=== PATIENT | female | born 1935 | race Caucasian/White ===

== ENCOUNTER 2016-10-08 19:02 | Inpatient (IN) | payer MEDICARE ==
[2016-10-08] MEDS ORDERED: Sodium Chloride 0.9% 1,000 ML IV SCH ×2 (19:15→20:45)
--- NOTE | 2016-10-08 21:49 | EDM.PDOC ---
ED HPI GENERAL MEDICAL PROBLEM - General Chief Complaint: Neuro Symptoms/Deficits Stated Complaint: UNRESPONSIVE Time Seen by Provider: 10/08/16 19:08 Source of Information: Reports: Patient, Family History Limitations: Reports: No Limitations - History of Present Illness INITIAL COMMENTS - FREE TEXT/NARRATIVE: pt arrived with a history of a poor oral intake and no stool for 1 week. She is definitely quite obtunded and not her self. Onset: Gradual Duration: Day(s):, Other (pt is not reponding in the normal manner) Associated Symptoms: Reports: Loss of Appetite, Malaise, Other ( has not been able to get her meds in. She is not tasking fluids. ) - Related Data Allergies Allergy/AdvReac Type Severity Reaction Status Date / Time No Known Allergies Allergy Verified 10/08/16 19:33 Home Meds: Home Meds Aspirin [Halfprin] 162 mg PO DAILY 10/08/16 [History] Cholecalciferol (Vitamin D3) [Vitamin D3] 2,000 unit PO DAILY 10/08/16 [History] Docusate Sodium 100 mg PO DAILY 10/08/16 [History] Famotidine [Pepcid] 20 mg PO BID 10/08/16 [History] Fluticasone Propionate [Flovent] 50 mcg IN BID 10/08/16 [History] Folic Acid/Vit B Complex and C [Eql Super B Complex Tablet] 400 mcg PO DAILY [History] Insulin Aspart [Novolog Flexpen] 8 units SQ TID PRN 10/08/16 [History] Levothyroxine 75 mcg PO ACBREAKFAST 10/08/16 [History] Lisinopril [Zestril] 10 mg PO DAILY 10/08/16 [History] Loratadine [Claritin] 10 mg PO DAILY 10/08/16 [History] Metoprolol Tartrate [Lopressor] 25 mg PO DAILY 10/08/16 [History] Polyethylene Glycol 3350 [MiraLAX] 17 gm PO DAILY 10/08/16 [History] Simvastatin [Zocor] 40 mg PO DAILY 10/08/16 [History] Venlafaxine [Effexor] 75 mg PO DAILY 10/08/16 [History] glipiZIDE [Glipizide ER] 5 mg PO DAILY 10/08/16 [History] metFORMIN [Glucophage] 1,000 mg PO BIDMEALS 10/08/16 [History] Past Medical History HEENT History: Reports: Allergic Rhinitis, Impaired Vision, Other (See Below) Other HEENT History: problems swallowing Cardiovascular History: Reports: High Cholesterol, Hypertension, Stents Gastrointestinal History: Reports: GERD Genitourinary History: Reports: Urinary Incontinence [employer] History: Reports: Musculoskeletal History: Reports: Back Pain, Chronic Neurological History: Reports: CVA, TIA Psychiatric History: Reports: Dementia Endocrine/Metabolic History: Reports: Diabetes, Type II Hematologic History: Reports: Blood Transfusion(s) Oncologic (Cancer) History: Reports: Other (See Below) Other Oncologic History: many years ago - cant recall which kind - Past Surgical History Cardiovascular Surgical History: Reports: Coronary Artery Bypass, Coronary Artery Stent Female Surgical History: Reports: Hysterectomy Social & Family History - Tobacco Use Smoking Status *Q: Never Smoker - Caffeine Use Caffeine Use: Reports: None - Recreational Drug Use Recreational Drug Use: No ED ROS GENERAL - Review of Systems Review Of Systems: See Below Constitutional: Reports: Malaise, Weakness HEENT: Reports: No Symptoms Respiratory: Reports: No Symptoms Cardiovascular: Reports: No Symptoms Endocrine: Reports: No Symptoms GI/Abdominal: Reports: Decreased Appetite, Other (poor oral intake. ) : Reports: No Symptoms, Other ( She had a recent infection and just finished a course of antibiotics. She has a history of frequent infections. The infection does affect her mentally. ) Musculoskeletal: Reports: No Symptoms Neurological: Reports: Other (pt responds but she is obtunded. v) Hematologic/Lymphatic: Reports: No Symptoms ED EXAM, NEURO - Physical Exam Exam: See Below Text/Narrative:: pt arrived obtunded and with a very poor oral intake. Exam Limited By: No Limitations General Appearance: Alert, Obtunded, Other (pupils equal and reactive) Ears: Normal TMs Nose: Normal Inspection Throat/Mouth: Normal Inspection Head Exam: Atraumatic Neck: Normal Inspection Respiratory/Chest: No Respiratory Distress Cardiovascular: Regular Rate, Rhythm, Tachycardia GI/Abdominal: Soft, Non-Tender (Female) Exam: Deferred Rectal (Female) Exam: Deferred Neurological: Alert, Other (obtunded septic looking) Back Exam: Normal Inspection Extremities: Normal Inspection Psychiatric: Flat Affect Course - Vital Signs Last Recorded V/S: Last Vital Signs Temp 36.6 C 10/08/16 19:48 Pulse 75 06/15/17 21:16 Resp 18 10/08/16 21:16 BP 177/94 H 10/08/16 21:16 Pulse Ox 98 10/08/16 21:16 - Orders/Labs/Meds Orders: Active Orders 24 hr Category Date Time Status Head wo Cont [CT] Stat Exams 10/08/16 20:21 Taken Sodium Chloride 0.9% [Normal Saline] 1,000 ml Med 10/08/16 19:15 Active IV ASDIRECTED Sodium Chloride 0.9% [Normal Saline] 1,000 ml Med 10/08/16 20:45 Active IV ASDIRECTED Medication Orders Sodium Chloride (Normal Saline) 1,000 mls @ 999 mls/hr IV ASDIRECTED FRANCIE Last Admin: 10/08/16 19:25 Dose: 999 mls/hr Sodium Chloride (Normal Saline) 1,000 mls @ 250 mls/hr IV ASDIRECTED FRANCIE Last Admin: 10/08/16 20:35 Dose: 250 mls/hr Labs: Laboratory Tests 10/08/16 10/08/16 10/08/16 Range/Units 19:10 19:10 19:10 WBC 9.0 (4.5-11.0) K/uL RBC 3.99 (3.30-5.50) M/uL Hgb 11.8 L (12.0-15.0) g/dL Hct 36.8 (36.0-48.0) % MCV 92 (80-98) fL MCH 30 (27-31) pg MCHC 32 (32-36) % Plt Count 219 (150-400) K/uL Neut % (Auto) 67 H (36-66) % Lymph % (Auto) 22 L (24-44) % [place] % (Auto) 9 H (2-6) % Eos % (Auto) 2 (2-4) % Baso % (Auto) 0 (0-1) % Sodium 141 (140-148) mmol/L Potassium 5.5 H (3.6-5.2) mmol/L Chloride 106 (100-108) mmol/L Carbon Dioxide 21 (21-32) mmol/L Anion Gap 19.5 H (5.0-14.0) mmol/L BUN 31 H (7-18) mg/dL Creatinine 2.3 H (0.6-1.0) mg/dL Est Cr Clr Drug Dosing 15.69 mL/min Estimated GFR (MDRD) 20 L (>60) Glucose 139 H (74-106) mg/dL Lactic Acid 4.0 H (0.4-2.0) mmol/L Calcium 9.0 (8.5-10.1) mg/dL Total Bilirubin 0.2 (0.2-1.0) mg/dL AST 17 (15-37) U/L ALT 20 (12-78) U/L Alkaline Phosphatase 91 (46-116) U/L Total Protein 7.4 (6.4-8.2) g/dL Albumin 3.6 (3.4-5.0) g/dL Globulin 3.8 H (2.3-3.5) g/dL Albumin/Globulin Ratio 1.0 L (1.2-2.2) Urine Color Urine Appearance Urine pH (4.5-8.0) Ur Specific [place] (1.008-1.030) Urine Protein (NEGATIVE) mg/dL Urine Glucose (UA) (NEGATIVE) mg/dL Urine Ketones (NEGATIVE) mg/dL Urine Occult Blood (NEGATIVE) Urine Nitrite (NEGATIVE) Urine Bilirubin (NEGATIVE) Urine Urobilinogen (NORMAL) mg/dL Ur Leukocyte Esterase (NEGATIVE) Urine RBC (0-5) Urine WBC (0-5) Ur Epithelial Cells Amorphous Sediment Urine Bacteria Urine Mucus 10/08/16 Range/Units 19:25 WBC (4.5-11.0) K/uL RBC (3.30-5.50) M/uL Hgb (12.0-15.0) g/dL Hct (36.0-48.0) % MCV (80-98) fL MCH (27-31) pg MCHC (32-36) % Plt Count (150-400) K/uL Neut % (Auto) (36-66) % Lymph % (Auto) (24-44) % [place] % (Auto) (2-6) % Eos % (Auto) (2-4) % Baso % (Auto) (0-1) % Sodium (140-148) mmol/L Potassium (3.6-5.2) mmol/L Chloride (100-108) mmol/L Carbon Dioxide (21-32) mmol/L Anion Gap (5.0-14.0) mmol/L BUN (7-18) mg/dL Creatinine (0.6-1.0) mg/dL Est Cr Clr Drug Dosing mL/min Estimated GFR (MDRD) (>60) Glucose (74-106) mg/dL Lactic Acid (0.4-2.0) mmol/L Calcium (8.5-10.1) mg/dL Total Bilirubin (0.2-1.0) mg/dL AST (15-37) U/L ALT (12-78) U/L Alkaline Phosphatase (46-116) U/L Total Protein (6.4-8.2) g/dL Albumin (3.4-5.0) g/dL Globulin (2.3-3.5) g/dL Albumin/Globulin Ratio (1.2-2.2) Urine Color Yellow Urine Appearance Clear Urine pH 6.0 (4.5-8.0) Ur Specific [place] 1.015 (1.008-1.030) Urine Protein Negative (NEGATIVE) mg/dL Urine Glucose (UA) Normal (NEGATIVE) mg/dL Urine Ketones Negative (NEGATIVE) mg/dL Urine Occult Blood Negative (NEGATIVE) Urine Nitrite Negative (NEGATIVE) Urine Bilirubin Small (NEGATIVE) Urine Urobilinogen Normal (NORMAL) mg/dL Ur Leukocyte Esterase Negative (NEGATIVE) Urine RBC 0-5 (0-5) Urine WBC 5-10 H (0-5) Ur Epithelial Cells Moderate Amorphous Sediment Not seen Urine Bacteria Moderate Urine Mucus Few Meds: Medications Generic Name Dose Route Start Last Admin Trade Name Freq PRN Reason Stop Dose Admin Sodium Chloride 1,000 mls @ 999 mls/hr 10/08/16 19:15 10/08/16 19:25 Normal Saline IV 999 mls/hr ASDIRECTED FRANCIE Administration Sodium Chloride 1,000 mls @ 250 mls/hr 10/08/16 20:45 10/08/16 20:35 Normal Saline IV 250 mls/hr ASDIRECTED FRANCIE Administration - Re-Assessments/Exams Free Text/Narrative Re-Assessment/Exam: 10/08/16 21:51 cat scan of the head showed no acute findings. Departure - Departure Time of Disposition: 21:52 Disposition: Admitted As Inpatient 68 Condition: Fair Clinical Impression: Sepsis, UTI (urinary tract infection), Dehydration, Renal insufficiency - Discharge Information Forms: ED Department Discharge Care Plan Goals: admit to [facility]. - My Orders Last 24 Hours: My Active Orders 10/08/16 19:15 Sodium Chloride 0.9% [Normal Saline] 1,000 ml IV ASDIRECTED 10/08/16 20:21 Head wo Cont [CT] Stat 10/08/16 20:45 Sodium Chloride 0.9% [Normal Saline] 1,000 ml IV ASDIRECTED - Assessment/Plan Last 24 Hours: My Active Orders 10/08/16 19:15 Sodium Chloride 0.9% [Normal Saline] 1,000 ml IV ASDIRECTED 10/08/16 20:21 Head wo Cont [CT] Stat 10/08/16 20:45 Sodium Chloride 0.9% [Normal Saline] 1,000 ml IV ASDIRECTED
[2016-10-09] MEDS ORDERED: Enoxaparin 30 MG/0.3 ML Syringe SUBCUT SCH
[2016-10-09] MEDS ORDERED: Acetaminophen 325 MG Tab PO PRN (00:54)
[2016-10-09] MEDS ORDERED: Bisacodyl 10 MG Supp RECTAL ONE ×2 (00:54→08:45)
[2016-10-09] MEDS ORDERED: Glucose Gel 15 GM in 37.5 GM Tube PO PRN (00:54)
[2016-10-09] MEDS ORDERED: Magnesium Hydroxide 400 MG/5 ML Susp 30 ML Cup PO PRN (00:54)
[2016-10-09] MEDS ORDERED: Albuterol 0.083% 2.5 MG/3 ML Neb Soln NEB PRN (00:54)
[2016-10-09] MEDS ORDERED: Ondansetron 4 MG/2 ML SDV IV PRN (00:54)
[2016-10-09] MEDS ORDERED: 50% Dextrose in Water 50 ML Syringe IV PRN (00:54)
[2016-10-09] MEDS ORDERED: Sodium Chloride 0.9% 500 ML IV ONE (00:54)
[2016-10-09] MEDS ORDERED: Polyethylene Glycol 3350 Powder 17 GM Packet PO PRN (00:54)
[2016-10-09] MEDS ORDERED: Sodium Polystyrene Sulfonate 15 GM/60 ML Susp 60 ML Bot RECTAL ONE (00:54)
[2016-10-09] MEDS ORDERED: Sodium Chloride 0.9% 10 ML Syringe FLUSH PRN (00:54)
[2016-10-09] MEDS ORDERED: oxyCODONE 5 MG Tab PO PRN (00:54)
[2016-10-09] MEDS ORDERED: Docusate Sodium 100 MG Cap PO PRN (00:54)
--- NOTE | 2016-10-09 01:16 | PCM.HP ---
H&P History of Present Illness - General Date of Service: 10/09/16 Admit Problem/Dx: Admission Diagnosis/Problem Admission Diagnosis/Problem CVA, Cerebrovascular accident Source of Information: Family, Old Records, Provider, RN Notes Reviewed History Limitations: Reports: Other (Decreased level of consciousness, expressive aphasia) - History of Present Illness Initial Comments - Free Text/Narative: This patient is a 81-year-old woman who is admitted through the emergency department with a recent history of decreased level of consciousness, weakness, and poor oral intake. 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 reports that over the past 3-4 days she has been less active spending all of her time in bed refusing foods as well as medications and becoming progressively more weak with decreased level of consciousness. Evaluation in the emergency department shows CT scan of the head with no acute changes. There is a lactic acidosis but no evidence of underlying infection or sepsis. Likely that the lactic acidosis is secondary to dehydration and poor peripheral perfusion. Chest x-ray shows no obvious infiltrates, urinalysis shows 5-10 WBCs with moderate bacteria, normal leukocyte esterase and nitrites. When seen for admission she is more alert and somewhat interactive but very limited because of her speech difficulty. - Related Data Allergies/Adverse Reactions: Allergies Allergy/AdvReac Type Severity Reaction Status Date / Time No Known Allergies Allergy Verified 10/08/16 19:33 Home Medications: Home Meds Aspirin [Halfprin] 162 mg PO DAILY 10/08/16 [History] Cholecalciferol (Vitamin D3) [Vitamin D3] 2,000 unit PO DAILY 10/08/16 [History] Docusate Sodium 100 mg PO DAILY 10/08/16 [History] Famotidine [Pepcid] 20 mg PO BID 10/08/16 [History] Fluticasone Propionate [Flovent] 50 mcg IN BID 10/08/16 [History] Folic Acid/Vit B Complex and C [Eql Super B Complex Tablet] 400 mcg PO DAILY [History] Insulin Aspart [Novolog Flexpen] 8 units SQ TID PRN 10/08/16 [History] Levothyroxine 75 mcg PO ACBREAKFAST 10/08/16 [History] Lisinopril [Zestril] 10 mg PO DAILY 10/08/16 [History] Loratadine [Claritin] 10 mg PO DAILY 10/08/16 [History] Metoprolol Tartrate [Lopressor] 25 mg PO DAILY 10/08/16 [History] Polyethylene Glycol 3350 [MiraLAX] 17 gm PO DAILY 10/08/16 [History] Simvastatin [Zocor] 40 mg PO DAILY 10/08/16 [History] Venlafaxine [Effexor] 75 mg PO DAILY 10/08/16 [History] glipiZIDE [Glipizide ER] 5 mg PO DAILY 10/08/16 [History] metFORMIN [Glucophage] 1,000 mg PO BIDMEALS 10/08/16 [History] Past Medical History HEENT History: Reports: Allergic Rhinitis, Impaired Vision, Other (See Below) Other HEENT History: problems swallowing Cardiovascular History: Reports: High Cholesterol, Hypertension, Stents Gastrointestinal History: Reports: GERD Genitourinary History: Reports: Urinary Incontinence [employer] History: Reports: Musculoskeletal History: Reports: Back Pain, Chronic Neurological History: Reports: CVA, TIA Psychiatric History: Reports: Dementia Endocrine/Metabolic History: Reports: Diabetes, Type II Hematologic History: Reports: Blood Transfusion(s) Oncologic (Cancer) History: Reports: Other (See Below) Other Oncologic History: many years ago - cant recall which kind - Past Surgical History Cardiovascular Surgical History: Reports: Coronary Artery Bypass, Coronary Artery Stent Female Surgical History: Reports: Hysterectomy Social & Family History - Tobacco Use Smoking Status *Q: Never Smoker - Caffeine Use Caffeine Use: Reports: None - Recreational Drug Use Recreational Drug Use: No H&P Review of Systems - Review of Systems: Review Of Systems: Unable To Obtain General: Reports: ROS unobtainable (Secondary to lethargy and impaired speech) Exam - Exam Exam: See Below - Vital Signs Vital Signs: Last Vital Signs Temp 97.8 F 10/08/16 19:48 Pulse 71 10/09/16 00:10 Resp 18 10/09/16 00:10 BP 166/78 H 10/09/16 00:10 Pulse Ox 97 10/09/16 00:10 Weight: 150 lb - Exam Quality Assessment: DVT Prophylaxis General: Alert, Cooperative, Mild Distress HEENT: Conjunctiva Clear, Hearing Intact, Nares Patent, Normal Nasal Septum, Posterior Pharynx Clear, Pupils Equal. No: Mucosa Moist & [place] Neck: Supple, Trachea Midline, +2 Carotid Pulse wo Bruit Lungs: Clear to Auscultation, Normal Respiratory Effort Cardiovascular: Regular Rate, Regular Rhythm, Normal S1, Normal S2. No: Irregular Rhythm, Bradycardia, Tachycardia, Systolic Murmur, Diastolic Murmur Abdomen: Normal Bowel Sounds, Soft. No: Organomegaly, Peritoneal Signs, Distention, Guarding, Rigidity, Rebound, Tenderness Back Exam: Normal Inspection, Full Range of Motion, NT Extremities: 3, Normal Inspection, 10 Neurological: Strength Equal Bilateral, Normal Tone, Sensation Intact, Focal Deficit. No: Cranial Nerves Intact, Normal Speech Neuro Extensive - Mental Status: Alert, Inattentive - Patient Data Result Diagrams: 10/08/16 19:10 10/08/16 19:10 *Q Meaningful Use (ADM) - VTE *Q VTE Criteria *Q: - VTE Risk Assess *Q Each Risk Factor Represents 1 Point: None Total Score 1 Point Risk Factors: 0 Each Risk Factor Represents 2 Points: None Total Score 2 Point Risk Factors: 0 Each Risk Factor Represents 3 Points: Age 75 Years or Greater Total Score 3 Point Risk Factors: 3 Each Risk Factor Represents 5 Points: None Total Score 5 Point Risk Factors: 0 Venous Thromboembolism Risk Factor Score *Q: 3 - Stroke *Q Stroke Criteria *Q: - AMI *Q AMI Criteria *Q: Problem List Initiated/Reviewed/Updated: Yes Orders Last 24hrs: Active Orders 24 hr Category Date Time Status Patient Status [ADT] Routine ADT 10/09/16 00:54 Active Blood Glucose Check, Bedside [RC] QIDACANDBED Care 10/09/16 00:54 Active Communication Order [RC] ASDIRECTED Care 10/09/16 00:54 Active Diabetes Education [RC] Click to Edit Care 10/09/16 00:54 Active Intake and Output [RC] QSHIFT Care 10/09/16 00:54 Active Neuro Check [RC] Q4HR Care 10/09/16 00:54 Active Notify Provider [RC] PRN Care 10/09/16 00:54 Active Oxygen Therapy [RC] PRN Care 10/09/16 00:54 Active Peripheral IV Care [RC] . DIRECTED Care 10/09/16 00:54 Active RT Aerosol Therapy [RC] ASDIRECTED Care 10/09/16 00:54 Active Up With Assistance [RC] ASDIRECTED Care 10/09/16 00:54 Active Up to Chair [RC] QID Care 10/09/16 00:54 Active VTE/DVT Education [RC] Per Unit Routine Care 10/09/16 00:54 Active Vital Signs [RC] Q4H Care 10/09/16 00:54 Active PT Evaluation and Treatment [CONS] Routine Cons 10/09/16 00:54 Active Consistent Carbohydrate Diet [DIET] Diet 10/09/16 Dinner Active Brain w wo Cont [MR] Urgent Exams 10/09/16 08:00 Ordered BASIC METABOLIC PANEL,BMP [CHEM] AM Lab 10/09/16 05:11 Ordered C-REACTIVE PROTEIN [CHEM] AM Lab 10/09/16 05:11 Ordered CBC WITH AUTO DIFF [HEME] AM Lab 10/09/16 05:11 Ordered GLUCOSE POC LAB TO COLLECT [POC] QIDACANDBED Lab 10/09/16 07:30 Ordered GLUCOSE POC LAB TO COLLECT [POC] QIDACANDBED Lab 10/09/16 11:30 Ordered GLUCOSE POC LAB TO COLLECT [POC] QIDACANDBED Lab 10/09/16 16:30 Ordered GLUCOSE POC LAB TO COLLECT [POC] QIDACANDBED Lab 10/09/16 21:00 Ordered GLUCOSE POC LAB TO COLLECT [POC] QIDACANDBED Lab 10/10/16 07:30 Ordered GLUCOSE POC LAB TO COLLECT [POC] QIDACANDBED Lab 10/10/16 11:30 Ordered GLUCOSE POC LAB TO COLLECT [POC] QIDACANDBED Lab 10/10/16 16:30 Ordered GLUCOSE POC LAB TO COLLECT [POC] QIDACANDBED Lab 10/10/16 21:00 Ordered GLUCOSE POC LAB TO COLLECT [POC] QIDACANDBED Lab 10/11/16 07:30 Ordered GLUCOSE POC LAB TO COLLECT [POC] QIDACANDBED Lab 10/11/16 11:30 Ordered GLUCOSE POC LAB TO COLLECT [POC] QIDACANDBED Lab 10/11/16 16:30 Ordered GLUCOSE POC LAB TO COLLECT [POC] QIDACANDBED Lab 10/11/16 21:00 Ordered GLUCOSE POC LAB TO COLLECT [POC] QIDACANDBED Lab 10/12/16 07:30 Ordered GLUCOSE POC LAB TO COLLECT [POC] QIDACANDBED Lab 10/12/16 11:30 Ordered GLUCOSE POC LAB TO COLLECT [POC] QIDACANDBED Lab 10/12/16 16:30 Ordered GLUCOSE POC LAB TO COLLECT [POC] QIDACANDBED Lab 10/12/16 21:00 Ordered GLUCOSE POC LAB TO COLLECT [POC] QIDACANDBED Lab 10/13/16 07:30 Ordered GLUCOSE POC LAB TO COLLECT [POC] QIDACANDBED Lab 10/13/16 11:30 Ordered GLUCOSE POC LAB TO COLLECT [POC] QIDACANDBED Lab 10/13/16 16:30 Ordered GLUCOSE POC LAB TO COLLECT [POC] QIDACANDBED Lab 10/13/16 21:00 Ordered GLUCOSE POC LAB TO COLLECT [POC] QIDACANDBED Lab 10/14/16 07:30 Ordered GLUCOSE POC LAB TO COLLECT [POC] QIDACANDBED Lab 10/14/16 11:30 Ordered GLUCOSE POC LAB TO COLLECT [POC] QIDACANDBED Lab 10/14/16 16:30 Ordered GLUCOSE POC LAB TO COLLECT [POC] QIDACANDBED Lab 10/14/16 21:00 Ordered GLUCOSE POC LAB TO COLLECT [POC] QIDACANDBED Lab 10/15/16 07:30 Ordered GLUCOSE POC LAB TO COLLECT [POC] QIDACANDBED Lab 10/15/16 11:30 Ordered GLUCOSE POC LAB TO COLLECT [POC] QIDACANDBED Lab 10/15/16 16:30 Ordered GLUCOSE POC LAB TO COLLECT [POC] QIDACANDBED Lab 10/15/16 21:00 Ordered GLUCOSE POC LAB TO COLLECT [POC] QIDACANDBED Lab 10/16/16 07:30 Ordered GLUCOSE POC LAB TO COLLECT [POC] QIDACANDBED Lab 10/16/16 11:30 Ordered GLUCOSE POC LAB TO COLLECT [POC] QIDACANDBED Lab 10/16/16 16:30 Ordered GLUCOSE POC LAB TO COLLECT [POC] QIDACANDBED Lab 10/16/16 21:00 Ordered GLUCOSE POC LAB TO COLLECT [POC] QIDACANDBED Lab 10/17/16 07:30 Ordered GLUCOSE POC LAB TO COLLECT [POC] QIDACANDBED Lab 10/17/16 11:30 Ordered GLUCOSE POC LAB TO COLLECT [POC] QIDACANDBED Lab 10/17/16 16:30 Ordered GLUCOSE POC LAB TO COLLECT [POC] QIDACANDBED Lab 10/17/16 21:00 Ordered GLUCOSE POC LAB TO COLLECT [POC] QIDACANDBED Lab 10/18/16 07:30 Ordered GLUCOSE POC LAB TO COLLECT [POC] QIDACANDBED Lab 10/18/16 11:30 Ordered GLUCOSE POC LAB TO COLLECT [POC] QIDACANDBED Lab 10/18/16 16:30 Ordered GLUCOSE POC LAB TO COLLECT [POC] QIDACANDBED Lab 10/18/16 21:00 Ordered GLUCOSE POC LAB TO COLLECT [POC] QIDACANDBED Lab 10/19/16 07:30 Ordered GLUCOSE POC LAB TO COLLECT [POC] QIDACANDBED Lab 10/19/16 11:30 Ordered GLUCOSE POC LAB TO COLLECT [POC] QIDACANDBED Lab 10/19/16 16:30 Ordered GLUCOSE POC LAB TO COLLECT [POC] QIDACANDBED Lab 10/19/16 21:00 Ordered TSH ULTRASENSITIVE [CHEM] Timed Lab 10/09/16 05:00 Ordered Acetaminophen [Tylenol] Med 10/09/16 00:54 Active 650 mg PO Q4H PRN Albuterol [Proventil Neb Soln] Med 10/09/16 00:54 Active 2.5 mg NEB Q4H PRN Dextrose 50% in Water Med 10/09/16 00:54 Active 50 ml IV ONETIME PRN Dextrose [Glutose 15] Med 10/09/16 00:54 Active 15 gm PO ONETIME PRN Docusate Sodium [Colace] Med 10/09/16 00:54 Active 100 mg PO BID PRN Enoxaparin [Lovenox] Med 10/09/16 00:54 Ordered 40 mg SUBCUT DAILY Insulin Aspart [NovoLOG] Med 10/09/16 00:54 Active See Protocol SUBCUT ASDIRECTED Magnesium Hydroxide [Milk of Magnesia] Med 10/09/16 00:54 Ordered 30 ml PO Q12H PRN Ondansetron [Zofran] Med 10/09/16 00:54 Ordered 4 mg IV Q4H PRN Polyethylene Glycol 3350 [MiraLAX] Med 10/09/16 00:54 Ordered 17 gm PO DAILY PRN Sodium Chloride 0.9% [Normal Saline] 1,000 ml Med 10/09/16 04:30 Ordered IV ASDIRECTED Sodium Chloride 0.9% [Normal Saline] 500 ml Med 10/09/16 00:54 Ordered IV .BOLUS Sodium Chloride 0.9% [Saline Flush] Med 10/09/16 00:54 Ordered 10 ml FLUSH ASDIRECTED PRN oxyCODONE Med 10/09/16 00:54 Ordered 5 mg PO Q4H PRN Peripheral IV Insertion Adult [OM.PC] Routine Oth 10/09/16 00:54 Ordered Resuscitation Status Routine Resus Stat 10/09/16 00:17 Ordered Medication Orders Acetaminophen (Tylenol) 650 mg PO Q4H PRN PRN Reason: Pain (Mild 1-3)/fever Albuterol (Proventil Neb Soln) 2.5 mg NEB Q4H PRN PRN Reason: Shortness Of Breath/wheezing Aspirin (Halfprin) 162 mg PO DAILY FRANCIE Dextrose (Glutose 15) 15 gm PO ONETIME PRN PRN Reason: Hypoglycemia Dextrose/Water (Dextrose 50% In Water) 50 ml IV ONETIME PRN PRN Reason: Hypoglycemia Docusate Sodium (Colace) 100 mg PO BID FRANCIE Docusate Sodium (Colace) 100 mg PO BID PRN PRN Reason: Constipation Enoxaparin Sodium (Lovenox) 40 mg SUBCUT DAILY [facility] Famotidine (Pepcid) 20 mg PO BID FRANCIE Sodium Chloride (Normal Saline) 500 mls @ 250 mls/hr IV .BOLUS FRANCIE Stop: 10/09/16 04:55 Sodium Chloride (Normal Saline) 1,000 mls @ 125 mls/hr IV ASDIRECTED FRANCIE Insulin Aspart (Novolog) 0 unit SUBCUT ASDIRECTED FRANCIE PRN Reason: Protocol Levothyroxine Sodium (Levothyroxine) 75 mcg PO ACBREAKFAST [facility]1983 Lisinopril (Prinivil) 10 mg PO DAILY [facility] Magnesium Hydroxide (Milk Of Magnesia) 30 ml PO Q12H PRN PRN Reason: Constipation Metoprolol Tartrate (Lopressor) 25 mg PO DAILY [facility]1983 Non-Formulary Medication (Fluticasone Propionate [Flovent]) 50 mcg IN BID [facility]1983 Non-Formulary Medication (Simvastatin [Zocor]) 40 mg PO DAILY [facility]1983 Ondansetron HCl (Zofran) 4 mg IV Q4H PRN PRN Reason: Nausea/Vomiting Oxycodone HCl (Oxycodone) 5 mg PO Q4H PRN PRN Reason: Pain (moderate 4-6) Polyethylene Glycol (Miralax) 17 gm PO BID FRANCIE Polyethylene Glycol (Miralax) 17 gm PO DAILY PRN PRN Reason: Constipation Sodium Chloride (Saline Flush) 10 ml FLUSH ASDIRECTED PRN PRN Reason: Keep Vein Open Venlafaxine HCl (Effexor) 75 mg PO DAILY FRANCIE Assessment/Plan Comment:: ASSESSMENT AND PLAN WEAKNESS AND DEHYDRATION-no evidence of underlying infection, metabolic abnormality, or new medication effect. I am suspicious that she has experienced a new CVA, complicating previous large CVA and history of smaller events in the past. -Neuro checks every 4 hours -IV fluids for hydration -Physical therapy consult in a.m. -MRI with and without contrast in a.m. CONSTIPATION- reports that she is not had a bowel movement for the past 5 -6 days. -Twice daily Colace -Twice daily lactulose -Dulcolax suppository HYPERKALEMIA-likely related to dehydration and renal insufficiency -Kayexalate 30 g rectally now -Recheck potassium level in a.m. -IV fluids as above CHRONIC KIDNEY DISEASE STAGE III-current GFR is 20, exacerbation likely secondary to dehydration and prerenal effect -IV fluids -Closely monitor urine output and renal function during hospital stay TYPE 2 DIABETES MELLITUS -Old scheduled insulins and oral hypoglycemic therapy until oral intake improves -4 times a day glucometers -Low-dose sliding scale NovoLog HYPOTHYROIDISM -Continue outpatient thyroid replacement medication -TSH with a.m. labs LACTIC ACIDOSIS-likely secondary to dehydration and poor peripheral perfusion -IV fluids for hydration -Repeat lactic acid level in a.m. MAINTENANCE ISSUES -DVT prophylaxis; Lovenox 30 mg subcutaneous daily -GI prophylaxis; continue outpatient H2 jonathan therapy -Pulliam catheter; not indicated -Nutrition; regular diet -Nicotine dependence; not required CODE STATUS-FULL CODE ADMISSION STATUS-patient will be admitted to inpatient status, expect at least a 2 night hospital stay for evaluation and management of problems as outlined above. At the time of this admission I do not reasonably expected evaluation and management of this problem will require more than a 96 hour hospital stay. DISPOSITION-anticipate discharge to home after the hospital stay. PRIMARY CARE PROVIDER-Dr. Zhong
[2016-10-09] MEDS ORDERED: Sodium Chloride 0.9% 1,000 ML IV SCH ×2 (04:30→08:45)
[2016-10-09] MEDS ORDERED: Sodium Phosphate,Monobasic/Sodium Phosphate,Dibasic Enema 133 ML Bottle RECTAL PRN (08:23)
[2016-10-09] MEDS: Levothyroxine 75 MCG Tab PO SCH (08:45)
--- NOTE | 2016-10-09 09:05 | CR ---
Chest 1V Frontal INDICATION: elevated lactic acid. FINDINGS: Comparison 04/18/2012. Sternotomy. Normal heart size. Old right rib fracture. No focal inf iltrate. Chest otherwise negative.
--- NOTE | 2016-10-09 09:14 | PCM.PN ---
- General Info Date of Service: 10/09/16 Functional Status: Reports: pain controlled, tolerating diet, ambulating, urinating - Review of Systems General: Reports: Weakness. Denies: Fever, Chills Pulmonary: Reports: no symptoms Cardiovascular: Reports: No Symptoms Gastrointestinal: Reports: No symptoms Systems Review Comment:: This patient appears improved today, she is more alert and interactive. Vital signs of been stable and she has remained afebrile. Metabolic abnormalities have improved with hydration. - Patient Data Vitals - most recent: Last Vital Signs Temp 97.4 F 10/09/16 07:27 Pulse 75 10/09/16 07:27 Resp 20 10/09/16 07:27 BP 113/56 L 10/09/16 07:27 Pulse Ox 96 10/09/16 07:27 Weight - most recent: 148 lb 14.4 oz I&O - last 24 hours: Intake & Output 10/08/16 10/09/16 10/09/16 22:59 06:59 14:59 Intake Total 1828 Output Total 75 Balance 1753 Lab Results last 24 hrs: Laboratory Results - last 24 hr 10/09/16 10/09/16 10/09/16 Range/Units 05:40 05:40 05:40 WBC 7.4 (4.5-11.0) K/uL RBC 3.48 (3.30-5.50) M/uL Hgb 10.3 L (12.0-15.0) g/dL Hct 32.0 L (36.0-48.0) % MCV 92 (80-98) fL MCH 30 (27-31) pg MCHC 32 (32-36) % Plt Count 164 (150-400) K/uL Neut % (Auto) 54 (36-66) % Lymph % (Auto) 33 (24-44) % Ritchie % (Auto) 11 H (2-6) % Eos % (Auto) 3 (2-4) % Baso % (Auto) 0 (0-1) % Sodium 145 (140-148) mmol/L Potassium 4.9 (3.6-5.2) mmol/L Chloride 114 H (100-108) mmol/L Carbon Dioxide 20 L (21-32) mmol/L Anion Gap 15.9 H (5.0-14.0) mmol/L BUN 25 H (7-18) mg/dL Creatinine 1.8 H (0.6-1.0) mg/dL Est Cr Clr Drug Dosing 19.87 mL/min Estimated GFR (MDRD) 27 L (>60) Glucose 52 L (74-106) mg/dL Lactic Acid (0.4-2.0) mmol/L Calcium 7.9 L (8.5-10.1) mg/dL C-Reactive Protein 0.05 (0.0-0.3) mg/dL TSH, Ultra Sensitive 0.803 (0.358-3.740) uIU/mL 10/09/16 Range/Units 05:40 WBC (4.5-11.0) K/uL RBC (3.30-5.50) M/uL Hgb (12.0-15.0) g/dL Hct (36.0-48.0) % MCV (80-98) fL MCH (27-31) pg MCHC (32-36) % Plt Count (150-400) K/uL Neut % (Auto) (36-66) % Lymph % (Auto) (24-44) % Ritchie % (Auto) (2-6) % Eos % (Auto) (2-4) % Baso % (Auto) (0-1) % Sodium (140-148) mmol/L Potassium (3.6-5.2) mmol/L Chloride (100-108) mmol/L Carbon Dioxide (21-32) mmol/L Anion Gap (5.0-14.0) mmol/L BUN (7-18) mg/dL Creatinine (0.6-1.0) mg/dL Est Cr Clr Drug Dosing mL/min Estimated GFR (MDRD) (>60) Glucose (74-106) mg/dL Lactic Acid 0.8 (0.4-2.0) mmol/L Calcium (8.5-10.1) mg/dL C-Reactive Protein (0.0-0.3) mg/dL TSH, Ultra Sensitive (0.358-3.740) uIU/mL Med Orders - Current: Current Medications Acetaminophen (Tylenol) 650 mg PO Q4H PRN PRN Reason: Pain (Mild 1-3)/fever Albuterol (Proventil Neb Soln) 2.5 mg NEB Q4H PRN PRN Reason: Shortness Of Breath/wheezing Aspirin (Halfprin) 162 mg PO DAILY ON LICENSE OF [facility] Dextrose (Glutose 15) 15 gm PO ONETIME PRN PRN Reason: Hypoglycemia Dextrose/Water (Dextrose 50% In Water) 50 ml IV ONETIME PRN PRN Reason: Hypoglycemia Docusate Sodium (Colace) 100 mg PO BID ON LICENSE OF [facility] Enoxaparin Sodium (Lovenox) 30 mg SUBCUT DAILY@0000 ON LICENSE OF [facility] Last Admin: 10/09/16 01:37 Dose: 30 mg Famotidine (Pepcid) 20 mg PO DAILY ON LICENSE OF [facility] Sodium Chloride (Normal Saline) 1,000 mls @ 50 mls/hr IV ASDIRECTED ON LICENSE OF [facility] Insulin Aspart (Novolog) 0 unit SUBCUT ASDIRECTED ON LICENSE OF [facility] PRN Reason: Protocol Levothyroxine Sodium (Levothyroxine) 75 mcg PO ACBREAKFAST ON LICENSE OF [facility] Last Admin: 10/09/16 08:45 Dose: 75 mcg Lisinopril (Prinivil) 10 mg PO DAILY ON LICENSE OF [facility] Magnesium Hydroxide (Milk Of Magnesia) 30 ml PO Q12H PRN PRN Reason: Constipation Metoprolol Tartrate (Lopressor) 25 mg PO DAILY ON LICENSE OF [facility] Mometasone Furoate (Asmanex 220 Mcg) 0 puff INH DAILY ON LICENSE OF [facility] Ondansetron HCl (Zofran) 4 mg IV Q4H PRN PRN Reason: Nausea/Vomiting Oxycodone HCl (Oxycodone) 5 mg PO Q4H PRN PRN Reason: Pain (moderate 4-6) Polyethylene Glycol (Miralax) 17 gm PO BID ON LICENSE OF [facility] Simvastatin (Zocor) 40 mg PO BEDTIME ON LICENSE OF [facility] Sodium Biphosphate/Sodium Phosphate (Fleet Enema) 133 ml RECTAL ONETIME PRN PRN Reason: Constipation Stop: 10/09/16 18:00 Sodium Chloride (Saline Flush) 10 ml FLUSH ASDIRECTED PRN PRN Reason: Keep Vein Open Venlafaxine HCl (Effexor Xr) 75 mg PO DAILY ON LICENSE OF [facility] Discontinued Medications Bisacodyl (Dulcolax) 10 mg RECTAL ONETIME ONE Stop: 10/09/16 00:55 Last Admin: 10/09/16 01:37 Dose: 10 mg Bisacodyl (Dulcolax) 10 mg RECTAL ONETIME ONE Stop: 10/09/16 08:46 Docusate Sodium (Colace) 100 mg PO BID PRN PRN Reason: Constipation Sodium Chloride (Normal Saline) 1,000 mls @ 999 mls/hr IV ASDIRECTED ON LICENSE OF [facility] Last Admin: 10/08/16 19:25 Dose: 999 mls/hr Sodium Chloride (Normal Saline) 1,000 mls @ 250 mls/hr IV ASDIRECTED ON LICENSE OF [facility] Last Admin: 10/08/16 20:35 Dose: 250 mls/hr Sodium Chloride (Normal Saline) 500 mls @ 250 mls/hr IV ONETIME ONE Stop: 10/09/16 02:53 Last Admin: 10/09/16 01:30 Dose: 250 mls/hr Sodium Chloride (Normal Saline) 1,000 mls @ 125 mls/hr IV ASDIRECTED ON LICENSE OF [facility] Last Admin: 10/09/16 03:44 Dose: 125 mls/hr Polyethylene Glycol (Miralax) 17 gm PO DAILY PRN PRN Reason: Constipation Sodium Polystyrene Sulfonate (Kayexalate) 30 gm RECTAL NOW ONE Stop: 10/09/16 00:55 Last Admin: 10/09/16 01:37 Dose: 30 gm - Exam General: alert, oriented, cooperative, no acute distress Lungs: Clear to auscultation, Normal respiratory effort Cardiovascular: Regular Rate, Regular Rhythm, No Murmurs Abdomen: bowel sounds present, soft, no tenderness, no distension Extremities: no edema Skin: warm, dry, intact Psy/Mental Status: alert, normal affect, normal mood - Problem List Review Problem List Initiated/Reviewed/Updated: Yes - My Orders Last 24 Hours: My Active Orders 10/09/16 00:00 Enoxaparin [Lovenox] 30 mg SUBCUT DAILY@0000 10/09/16 00:17 Resuscitation Status Routine 10/09/16 00:54 Patient Status [ADT] Routine Blood Glucose Check, Bedside [RC] QIDACANDBED Communication Order [RC] ASDIRECTED Diabetes Education [RC] Click to Edit Intake and Output [RC] QSHIFT Neuro Check [RC] Q4HR Notify Provider [RC] PRN Oxygen Therapy [RC] PRN Peripheral IV Care [RC] . DIRECTED RT Aerosol Therapy [RC] ASDIRECTED Up With Assistance [RC] ASDIRECTED Up to Chair [RC] QID VTE/DVT Education [RC] Per Unit Routine Vital Signs [RC] Q4H PT Evaluation and Treatment [CONS] Routine Acetaminophen [Tylenol] 650 mg PO Q4H PRN Albuterol [Proventil Neb Soln] 2.5 mg NEB Q4H PRN Dextrose 50% in Water 50 ml IV ONETIME PRN Dextrose [Glutose 15] 15 gm PO ONETIME PRN Insulin Aspart [NovoLOG] See Protocol SUBCUT ASDIRECTED Magnesium Hydroxide [Milk of Magnesia] 30 ml PO Q12H PRN Ondansetron [Zofran] 4 mg IV Q4H PRN Sodium Chloride 0.9% [Saline Flush] 10 ml FLUSH ASDIRECTED PRN oxyCODONE 5 mg PO Q4H PRN Peripheral IV Insertion Adult [OM.PC] Routine 10/09/16 08:00 Brain w wo Cont [MR] Urgent 10/09/16 08:23 Na Phos,M-B/Na Phos,DI-B [Fleet Enema] 133 ml RECTAL ONETIME PRN 10/09/16 08:45 Sodium Chloride 0.9% [Normal Saline] 1,000 ml IV ASDIRECTED 10/09/16 16:30 GLUCOSE POC LAB TO COLLECT [POC] QIDACANDBED 10/09/16 21:00 GLUCOSE POC LAB TO COLLECT [POC] QIDACANDBED 10/09/16 Dinner Consistent Carbohydrate Diet [DIET] 10/10/16 05:00 BASIC METABOLIC PANEL,BMP [CHEM] Timed CBC WITH AUTO DIFF [HEME] Timed 10/10/16 07:30 GLUCOSE POC LAB TO COLLECT [POC] QIDACANDBED 10/10/16 11:30 GLUCOSE POC LAB TO COLLECT [POC] QIDACANDBED 10/10/16 16:30 GLUCOSE POC LAB TO COLLECT [POC] QIDACANDBED 10/10/16 21:00 GLUCOSE POC LAB TO COLLECT [POC] QIDACANDBED 10/11/16 07:30 GLUCOSE POC LAB TO COLLECT [POC] QIDACANDBED 10/11/16 11:30 GLUCOSE POC LAB TO COLLECT [POC] QIDACANDBED 10/11/16 16:30 GLUCOSE POC LAB TO COLLECT [POC] QIDACANDBED 10/11/16 21:00 GLUCOSE POC LAB TO COLLECT [POC] QIDACANDBED 10/12/16 07:30 GLUCOSE POC LAB TO COLLECT [POC] QIDACANDBED 10/12/16 11:30 GLUCOSE POC LAB TO COLLECT [POC] QIDACANDBED 10/12/16 16:30 GLUCOSE POC LAB TO COLLECT [POC] QIDACANDBED 10/12/16 21:00 GLUCOSE POC LAB TO COLLECT [POC] QIDACANDBED 10/13/16 07:30 GLUCOSE POC LAB TO COLLECT [POC] QIDACANDBED 10/13/16 11:30 GLUCOSE POC LAB TO COLLECT [POC] QIDACANDBED 10/13/16 16:30 GLUCOSE POC LAB TO COLLECT [POC] QIDACANDBED 10/13/16 21:00 GLUCOSE POC LAB TO COLLECT [POC] QIDACANDBED 10/14/16 07:30 GLUCOSE POC LAB TO COLLECT [POC] QIDACANDBED 10/14/16 11:30 GLUCOSE POC LAB TO COLLECT [POC] QIDACANDBED 10/14/16 16:30 GLUCOSE POC LAB TO COLLECT [POC] QIDACANDBED 10/14/16 21:00 GLUCOSE POC LAB TO COLLECT [POC] QIDACANDBED 10/15/16 07:30 GLUCOSE POC LAB TO COLLECT [POC] QIDACANDBED 10/15/16 11:30 GLUCOSE POC LAB TO COLLECT [POC] QIDACANDBED 10/15/16 16:30 GLUCOSE POC LAB TO COLLECT [POC] QIDACANDBED 10/15/16 21:00 GLUCOSE POC LAB TO COLLECT [POC] QIDACANDBED 10/16/16 07:30 GLUCOSE POC LAB TO COLLECT [POC] QIDACANDBED 10/16/16 11:30 GLUCOSE POC LAB TO COLLECT [POC] QIDACANDBED 10/16/16 16:30 GLUCOSE POC LAB TO COLLECT [POC] QIDACANDBED 10/16/16 21:00 GLUCOSE POC LAB TO COLLECT [POC] QIDACANDBED 10/17/16 07:30 GLUCOSE POC LAB TO COLLECT [POC] QIDACANDBED 10/17/16 11:30 GLUCOSE POC LAB TO COLLECT [POC] QIDACANDBED 10/17/16 16:30 GLUCOSE POC LAB TO COLLECT [POC] QIDACANDBED 10/17/16 21:00 GLUCOSE POC LAB TO COLLECT [POC] QIDACANDBED 10/18/16 07:30 GLUCOSE POC LAB TO COLLECT [POC] QIDACANDBED 10/18/16 11:30 GLUCOSE POC LAB TO COLLECT [POC] QIDACANDBED 10/18/16 16:30 GLUCOSE POC LAB TO COLLECT [POC] QIDACANDBED 10/18/16 21:00 GLUCOSE POC LAB TO COLLECT [POC] QIDACANDBED 10/19/16 07:30 GLUCOSE POC LAB TO COLLECT [POC] QIDACANDBED 10/19/16 11:30 GLUCOSE POC LAB TO COLLECT [POC] QIDACANDBED 10/19/16 16:30 GLUCOSE POC LAB TO COLLECT [POC] QIDACANDBED 10/19/16 21:00 GLUCOSE POC LAB TO COLLECT [POC] QIDACANDBED - Plan Plan:: ASSESSMENT AND PLAN WEAKNESS AND DEHYDRATION-no evidence of underlying infection, metabolic abnormality, or new medication effect. I am suspicious that she has experienced a new CVA, complicating previous large CVA and history of smaller events in the past. She appears improved this morning more alert and reports that she does have an appetite -Neuro checks every 4 hours -IV fluids for hydration -Physical therapy consult in a.m. -MRI with and without contrast in a.m. Modest results from Dulcolax suppository last night -Twice daily Colace -Twice daily lactulose -Dulcolax suppository this morning -Fleets enema if no result from suppository Resolved with Kayexalate -Recheck potassium level in a.m. -IV fluids as above CHRONIC KIDNEY DISEASE STAGE III-improved with hydration -IV fluids -Closely monitor urine output and renal function during hospital stay TYPE 2 DIABETES MELLITUS -Hold scheduled insulins and oral hypoglycemic therapy until oral intake improves -4 times a day glucometers -Low-dose sliding scale NovoLog HYPOTHYROIDISM -Continue outpatient thyroid replacement medication -TSH with a.m. labs LACTIC resolved with hydration -IV fluids for hydration MAINTENANCE ISSUES -DVT prophylaxis; Lovenox 30 mg subcutaneous daily -GI prophylaxis; continue outpatient H2 jonathan therapy -Pulliam catheter; not indicated -Nutrition; regular diet -Nicotine dependence; not required CODE STATUS-FULL CODE ADMISSION STATUS-patient will be admitted to inpatient status, expect at least a 2 night hospital stay for evaluation and management of problems as outlined above. At the time of this admission I do not reasonably expected evaluation and management of this problem will require more than a 96 hour hospital stay. DISPOSITION-anticipate discharge to home after the hospital stay. PRIMARY CARE PROVIDER-Dr. Zhong
[2016-10-09] MEDS: Venlafaxine 75 MG Cap.ER PO SCH (09:17)
[2016-10-09] MEDS: Famotidine 20 MG Tab PO SCH (09:17)
[2016-10-09] MEDS: Aspirin 81 MG Tab.EC PO SCH (09:18)
[2016-10-09] MEDS: Docusate Sodium 100 MG Cap PO SCH ×2 (09:19→21:30)
[2016-10-09] MEDS: Metoprolol Tartrate 25 MG Tab PO SCH (09:20)
[2016-10-09] MEDS: Lisinopril 10 MG Tab PO SCH (09:40)
[2016-10-09] MEDS: Polyethylene Glycol 3350 Powder 17 GM Packet PO SCH ×2 (09:48→21:29)
[2016-10-09] MEDS: Mometasone Furoate Powder 220 MCG/Puff 14 Dose Inhaler INH SCH (09:59)
--- NOTE | 2016-10-09 11:01 | MR ---
Brain wo Cont INDICATION: History of previous right CVA, new weakness COMPARISON: CT 10/08/2016. FINDINGS: IV gadolinium could not be administered due to patient's calculated GFR of 20. Generalized cerebral and cerebellar volume loss. Confluent foci of T2 hyperintensity in the periventricular and subcortical deep white matter that are nonspecific but most compatible with chronic small vessel is chemic changes. Chronic lacunar infarcts bilateral basal ganglia. Multiple chronic white matter infa rcts. Moderate mucosal thickening and fluid in the left maxillary sinus with mild mucosal thickening in scattered ethmoid sinuses. No restricted diffusion to suggest acute or subacute infarct. No evid ence for intraparenchymal mass or mass effect. Fluid in the right mastoid air cells. Exam otherwise negative. IMPRESSION: 1. No evidence for subacute infarct or mass. 2. Left maxillary sinusitis and right mastoiditis. Findings called to the ICU at extension [id number] at 10:58 AM on 10/09/2016.
[2016-10-09] MEDS: Insulin Aspart 100 Units/ML 3 ML Pen SUBCUT SCH ×2 (13:19→17:52)
[2016-10-09] MEDS ORDERED: Insulin Aspart 100 Units/ML 3 ML Pen ONE (13:23)
[2016-10-09] MEDS: Lactobacillus Rhamnosus GG (Probiotic) Cap PO SCH ×2 (17:41→21:29)
[2016-10-09] MEDS: Clindamycin HCl 150 MG Cap PO SCH ×2 (17:46→23:04)
[2016-10-09] MEDS: Simvastatin 20 MG Tab PO SCH (21:29)
[2016-10-09] MEDS: Enoxaparin 30 MG/0.3 ML Syringe SUBCUT SCH (21:30)
[2016-10-09] MEDS: Ciprofloxacin/Dexamethasone 0.3-0.1% Otic Susp 7.5 ML Bottle EARRT SCH (23:04)
[2016-10-10] MEDS: Clindamycin HCl 150 MG Cap PO SCH ×4 (04:10→22:00)
[2016-10-10] MEDS: Ciprofloxacin/Dexamethasone 0.3-0.1% Otic Susp 7.5 ML Bottle EARRT SCH ×2 (05:16→14:45)
[2016-10-10] MEDS: Levothyroxine 75 MCG Tab PO SCH (08:04)
[2016-10-10] MEDS: Aspirin 81 MG Tab.EC PO SCH (08:04)
[2016-10-10] MEDS: Lactobacillus Rhamnosus GG (Probiotic) Cap PO SCH ×2 (08:04→20:12)
[2016-10-10] MEDS: Mometasone Furoate Powder 220 MCG/Puff 14 Dose Inhaler INH SCH ×2 (08:04→09:19)
[2016-10-10] MEDS: Venlafaxine 75 MG Cap.ER PO SCH (08:04)
[2016-10-10] MEDS: Metoprolol Tartrate 25 MG Tab PO SCH (08:04)
[2016-10-10] MEDS: Docusate Sodium 100 MG Cap PO SCH ×2 (08:04→20:12)
[2016-10-10] MEDS: Polyethylene Glycol 3350 Powder 17 GM Packet PO SCH ×2 (08:05→20:11)
[2016-10-10] MEDS: Famotidine 20 MG Tab PO SCH (08:05)
[2016-10-10] MEDS: Lisinopril 10 MG Tab PO SCH (09:01)
[2016-10-10] MEDS: Ciprofloxacin 0.3% Ophth Soln 5 ML Bottle EARRT SCH ×3 (11:35→21:04)
[2016-10-10] MEDS: Insulin Aspart 100 Units/ML 3 ML Pen SUBCUT SCH ×2 (11:38→21:05)
--- NOTE | 2016-10-10 13:52 | PCM.PN ---
- General Info Date of Service: 10/10/16 Functional Status: Reports: pain controlled, tolerating diet, urinating - Review of Systems General: Reports: Weakness. Denies: Fever, Chills Pulmonary: Reports: no symptoms Cardiovascular: Reports: No Symptoms Gastrointestinal: Reports: No symptoms Systems Review Comment:: This patient appears to be more tired and fatigued today, plan had been for discharge to home with care of her . Family now feels that her is unable to provide care for her at home and they would like to consider detention placement. She is otherwise hemodynamically stable, there is a mild hyperchloremic metabolic acidosis. - Patient Data Vitals - most recent: Last Vital Signs Temp 96.8 F 10/10/16 11:24 Pulse 53 L 10/10/16 13:02 Resp 17 10/10/16 11:24 BP 150/63 H 10/10/16 11:24 Pulse Ox 100 10/10/16 11:24 Weight - most recent: 148 lb 14.403 oz I&O - last 24 hours: Intake & Output 10/09/16 10/10/16 10/10/16 22:59 06:59 14:59 Intake Total 1650 990 310 Balance 1650 990 310 Lab Results last 24 hrs: Laboratory Results - last 24 hr 10/10/16 10/10/16 Range/Units 06:03 06:03 WBC 6.2 (4.5-11.0) K/uL RBC 3.29 L (3.30-5.50) M/uL Hgb 9.8 L (12.0-15.0) g/dL Hct 30.5 L (36.0-48.0) % MCV 93 (80-98) fL MCH 30 (27-31) pg MCHC 32 (32-36) % Plt Count 148 L (150-400) K/uL Neut % (Auto) 48 (36-66) % Lymph % (Auto) 37 (24-44) % Thomas % (Auto) 10 H (2-6) % Eos % (Auto) 5 H (2-4) % Baso % (Auto) 1 (0-1) % Sodium 141 (140-148) mmol/L Potassium 5.4 H (3.6-5.2) mmol/L Chloride 114 H (100-108) mmol/L Carbon Dioxide 17 L (21-32) mmol/L Anion Gap 15.4 H (5.0-14.0) mmol/L BUN 28 H (7-18) mg/dL Creatinine 1.4 H (0.6-1.0) mg/dL Est Cr Clr Drug Dosing 25.55 mL/min Estimated GFR (MDRD) 36 L (>60) Glucose 143 H (74-106) mg/dL Calcium 7.7 L (8.5-10.1) mg/dL Med Orders - Current: Current Medications Acetaminophen (Tylenol) 650 mg PO Q4H PRN PRN Reason: Pain (Mild 1-3)/fever Albuterol (Proventil Neb Soln) 2.5 mg NEB Q4H PRN PRN Reason: Shortness Of Breath/wheezing Aspirin (Halfprin) 162 mg PO DAILY [facility] Last Admin: 10/10/16 08:04 Dose: 162 mg Ciprofloxacin (Ciloxan 0.3% Ophth Soln) 0 ml EARRT QID [facility] Last Admin: 10/10/16 11:35 Dose: 1 applic Clindamycin HCl (Cleocin) 450 mg PO Q6H [facility] Last Admin: 10/10/16 11:36 Dose: 450 mg Dextrose (Glutose 15) 15 gm PO ONETIME PRN PRN Reason: Hypoglycemia Dextrose/Water (Dextrose 50% In Water) 50 ml IV ONETIME PRN PRN Reason: Hypoglycemia Docusate Sodium (Colace) 100 mg PO BID [facility] Last Admin: 10/10/16 08:04 Dose: 100 mg Enoxaparin Sodium (Lovenox) 30 mg SUBCUT Q24H [facility] Last Admin: 10/09/16 21:30 Dose: 30 mg Famotidine (Pepcid) 20 mg PO DAILY [facility] Last Admin: 10/10/16 08:05 Dose: 20 mg Insulin Aspart (Novolog) 0 unit SUBCUT ASDIRECTED [facility] PRN Reason: Protocol Last Admin: 10/10/16 11:38 Dose: 3 units Lactobacillus Rhamnosus (Culturelle) 2 cap PO BID [facility] Last Admin: 10/10/16 08:04 Dose: 2 cap Levothyroxine Sodium (Levothyroxine) 75 mcg PO ACBREAKFAST [facility] Last Admin: 10/10/16 08:04 Dose: 75 mcg Lisinopril (Prinivil) 10 mg PO DAILY [facility] Last Admin: 10/10/16 09:01 Dose: 10 mg Magnesium Hydroxide (Milk Of Magnesia) 30 ml PO Q12H PRN PRN Reason: Constipation Metoprolol Tartrate (Lopressor) 25 mg PO DAILY [facility] Last Admin: 10/10/16 08:04 Dose: 25 mg Mometasone Furoate (Asmanex 220 Mcg) 0 puff INH DAILY [facility] Last Admin: 10/10/16 09:19 Dose: Not Given Ondansetron HCl (Zofran) 4 mg IV Q4H PRN PRN Reason: Nausea/Vomiting Oxycodone HCl (Oxycodone) 5 mg PO Q4H PRN PRN Reason: Pain (moderate 4-6) Polyethylene Glycol (Miralax) 17 gm PO BID [facility] Last Admin: 10/10/16 08:05 Dose: 17 gm Simvastatin (Zocor) 40 mg PO BEDTIME [facility] Last Admin: 10/09/16 21:29 Dose: 40 mg Sodium Chloride (Saline Flush) 10 ml FLUSH ASDIRECTED PRN PRN Reason: Keep Vein Open Sodium Polystyrene Sulfonate (Kayexalate) 30 gm PO ONETIME ONE Stop: 10/10/16 13:47 Venlafaxine HCl (Effexor Xr) 75 mg PO DAILY [facility] Last Admin: 10/10/16 08:04 Dose: 75 mg Discontinued Medications Bisacodyl (Dulcolax) 10 mg RECTAL ONETIME ONE Stop: 10/09/16 00:55 Last Admin: 10/09/16 01:37 Dose: 10 mg Bisacodyl (Dulcolax) 10 mg RECTAL ONETIME ONE Stop: 10/09/16 08:46 Last Admin: 10/09/16 09:48 Dose: 10 mg Ciprofloxacin (Ciloxan 0.3% Ophth Soln) 0 ml EARRT QID [facility] Ciprofloxacin (Ciloxan 0.3% Ophth Soln) 0 ml EARRT QID [facility] Ciprofloxacin/Dexamethasone (Ciprodex Otic Susp) 0 ml EARRT QID [facility] Last Admin: 10/10/16 05:16 Dose: Not Given Docusate Sodium (Colace) 100 mg PO BID PRN PRN Reason: Constipation Last Admin: 10/09/16 09:34 Dose: 100 mg Enoxaparin Sodium (Lovenox) 30 mg SUBCUT DAILY@0000 [facility] Last Admin: 10/09/16 01:37 Dose: 30 mg Sodium Chloride (Normal Saline) 1,000 mls @ 999 mls/hr IV ASDIRECTED [facility] Last Admin: 10/08/16 19:25 Dose: 999 mls/hr Sodium Chloride (Normal Saline) 1,000 mls @ 250 mls/hr IV ASDIRECTED [facility] Last Admin: 10/08/16 20:35 Dose: 250 mls/hr Sodium Chloride (Normal Saline) 500 mls @ 250 mls/hr IV ONETIME ONE Stop: 10/09/16 02:53 Last Admin: 10/09/16 01:30 Dose: 250 mls/hr Sodium Chloride (Normal Saline) 1,000 mls @ 125 mls/hr IV ASDIRECTED [facility] Last Admin: 10/09/16 03:44 Dose: 125 mls/hr Sodium Chloride (Normal Saline) 1,000 mls @ 50 mls/hr IV ASDIRECTED [facility] Last Admin: 10/09/16 20:45 Dose: 50 mls/hr Insulin Aspart (Novolog) Confirm Administered Dose 300 unit .ROUTE .STK-MED ONE Stop: 10/09/16 13:24 Last Admin: 10/09/16 13:36 Dose: Not Given Polyethylene Glycol (Miralax) 17 gm PO DAILY PRN PRN Reason: Constipation Last Admin: 10/09/16 09:35 Dose: 17 gm Sodium Biphosphate/Sodium Phosphate (Fleet Enema) 133 ml RECTAL ONETIME PRN PRN Reason: Constipation Stop: 10/09/16 18:00 Sodium Polystyrene Sulfonate (Kayexalate) 30 gm RECTAL NOW ONE Stop: 10/09/16 00:55 Last Admin: 10/09/16 01:37 Dose: 30 gm - Exam Quality Assessment: DVT prophylaxis General: alert, oriented, cooperative, no acute distress Lungs: Clear to auscultation, Normal respiratory effort Cardiovascular: Regular Rate, Regular Rhythm, No Murmurs Abdomen: bowel sounds present, soft, no tenderness, no distension Extremities: no edema Skin: warm, dry, intact - Problem List Review Problem List Initiated/Reviewed/Updated: Yes - My Orders Last 24 Hours: My Active Orders 10/09/16 17:00 Clindamycin HCl [Cleocin] 450 mg PO Q6H Lactobacillus Rhamnosus GG [Culturelle] 2 cap PO BID 10/09/16 22:00 Enoxaparin [Lovenox] 30 mg SUBCUT Q24H 10/09/16 Dinner Consistent Carbohydrate Diet [DIET] 10/10/16 11:00 Ciprofloxacin [Ciloxan 0.3% Ophth Soln] 0 ml EARRT QID 10/10/16 13:45 Convert IV to Saline Lock [OM.PC] Routine 10/10/16 13:46 Sodium Polystyrene Sulfonate [Kayexalate] 30 gm PO ONETIME ONE 10/10/16 16:30 GLUCOSE POC LAB TO COLLECT [POC] QIDACANDBED 10/10/16 21:00 GLUCOSE POC LAB TO COLLECT [POC] QIDACANDBED 10/11/16 05:00 BASIC METABOLIC PANEL,BMP [CHEM] Timed 10/11/16 07:30 GLUCOSE POC LAB TO COLLECT [POC] QIDACANDBED GLUCOSE POC LAB TO COLLECT [POC] QIDACANDBED 10/11/16 11:30 GLUCOSE POC LAB TO COLLECT [POC] QIDACANDBED GLUCOSE POC LAB TO COLLECT [POC] QIDACANDBED 10/11/16 16:30 GLUCOSE POC LAB TO COLLECT [POC] QIDACANDBED GLUCOSE POC LAB TO COLLECT [POC] QIDACANDBED 10/11/16 21:00 GLUCOSE POC LAB TO COLLECT [POC] QIDACANDBED GLUCOSE POC LAB TO COLLECT [POC] QIDACANDBED 10/12/16 07:30 GLUCOSE POC LAB TO COLLECT [POC] QIDACANDBED GLUCOSE POC LAB TO COLLECT [POC] QIDACANDBED 10/12/16 11:30 GLUCOSE POC LAB TO COLLECT [POC] QIDACANDBED GLUCOSE POC LAB TO COLLECT [POC] QIDACANDBED 10/12/16 16:30 GLUCOSE POC LAB TO COLLECT [POC] QIDACANDBED GLUCOSE POC LAB TO COLLECT [POC] QIDACANDBED 10/12/16 21:00 GLUCOSE POC LAB TO COLLECT [POC] QIDACANDBED GLUCOSE POC LAB TO COLLECT [POC] QIDACANDBED 10/13/16 07:30 GLUCOSE POC LAB TO COLLECT [POC] QIDACANDBED 10/13/16 11:30 GLUCOSE POC LAB TO COLLECT [POC] QIDACANDBED 10/13/16 16:30 GLUCOSE POC LAB TO COLLECT [POC] QIDACANDBED 10/13/16 21:00 GLUCOSE POC LAB TO COLLECT [POC] QIDACANDBED 10/14/16 07:30 GLUCOSE POC LAB TO COLLECT [POC] QIDACANDBED 10/14/16 11:30 GLUCOSE POC LAB TO COLLECT [POC] QIDACANDBED 10/14/16 16:30 GLUCOSE POC LAB TO COLLECT [POC] QIDACANDBED 10/14/16 21:00 GLUCOSE POC LAB TO COLLECT [POC] QIDACANDBED 10/15/16 07:30 GLUCOSE POC LAB TO COLLECT [POC] QIDACANDBED 10/15/16 11:30 GLUCOSE POC LAB TO COLLECT [POC] QIDACANDBED 10/15/16 16:30 GLUCOSE POC LAB TO COLLECT [POC] QIDACANDBED 10/15/16 21:00 GLUCOSE POC LAB TO COLLECT [POC] QIDACANDBED 10/16/16 07:30 GLUCOSE POC LAB TO COLLECT [POC] QIDACANDBED 10/16/16 11:30 GLUCOSE POC LAB TO COLLECT [POC] QIDACANDBED 10/16/16 16:30 GLUCOSE POC LAB TO COLLECT [POC] QIDACANDBED 10/16/16 21:00 GLUCOSE POC LAB TO COLLECT [POC] QIDACANDBED 10/17/16 07:30 GLUCOSE POC LAB TO COLLECT [POC] QIDACANDBED 10/17/16 11:30 GLUCOSE POC LAB TO COLLECT [POC] QIDACANDBED 10/17/16 16:30 GLUCOSE POC LAB TO COLLECT [POC] QIDACANDBED 10/17/16 21:00 GLUCOSE POC LAB TO COLLECT [POC] QIDACANDBED 10/18/16 07:30 GLUCOSE POC LAB TO COLLECT [POC] QIDACANDBED 10/18/16 11:30 GLUCOSE POC LAB TO COLLECT [POC] QIDACANDBED 10/18/16 16:30 GLUCOSE POC LAB TO COLLECT [POC] QIDACANDBED 10/18/16 21:00 GLUCOSE POC LAB TO COLLECT [POC] QIDACANDBED 10/19/16 07:30 GLUCOSE POC LAB TO COLLECT [POC] QIDACANDBED 10/19/16 11:30 GLUCOSE POC LAB TO COLLECT [POC] QIDACANDBED 10/19/16 16:30 GLUCOSE POC LAB TO COLLECT [POC] QIDACANDBED 10/19/16 21:00 GLUCOSE POC LAB TO COLLECT [POC] QIDACANDBED - Plan Plan:: ASSESSMENT AND PLAN WEAKNESS AND DEHYDRATION-no evidence of underlying infection, metabolic abnormality, or new medication effect. MRI was negative for any evidence of new CVA. It did show evidence of some mastoiditis on the right and a maxillary sinusitis on the left -Neuro checks every 4 hours -Saline lock IV -Clindamycin 450 mg by mouth every 6 hours -Physical therapy consult in a.m. -MRI with and without contrast in a.m. CONSTIPATION-resolved -Twice daily Colace -Twice daily lactulose HYPERKALEMIA-recurrent, potassium level this morning 5.4 -Kayexalate 30 g by mouth now -Recheck potassium level in a.m. CHRONIC KIDNEY DISEASE STAGE III-improved with hydration -Saline lock IV -Closely monitor urine output and renal function during hospital stay MILD HYPERCHLOREMIC METABOLIC ACIDOSIS TYPE 2 DIABETES MELLITUS -Hold scheduled insulins and oral hypoglycemic therapy until oral intake improves -4 times a day glucometers -Low-dose sliding scale NovoLog HYPOTHYROIDISM -Continue outpatient thyroid replacement medication -TSH with a.m. labs LACTIC ACIDOSIS-resolved with hydration MAINTENANCE ISSUES -DVT prophylaxis; Lovenox 30 mg subcutaneous daily -GI prophylaxis; continue outpatient H2 jonathan therapy -Pulliam catheter; not indicated -Nutrition; regular diet -Nicotine dependence; not required CODE STATUS-FULL CODE ADMISSION STATUS-patient will be admitted to inpatient status, expect at least a 2 night hospital stay for evaluation and management of problems as outlined above. At the time of this admission I do not reasonably expected evaluation and management of this problem will require more than a 96 hour hospital stay. DISPOSITION-anticipate discharge to home after the hospital stay. PRIMARY CARE PROVIDER-Dr. Zhong
[2016-10-10] MEDS: Sodium Polystyrene Sulfonate 15 GM/60 ML Susp 60 ML Bot PO ONE ×2 (14:48→15:04)
[2016-10-10] MEDS ORDERED: Ciprofloxacin 0.3% Ophth Soln 5 ML Bottle EARRT SCH ×2 (16:00)
[2016-10-10] MEDS: Simvastatin 20 MG Tab PO SCH (20:12)
[2016-10-10] MEDS: Enoxaparin 30 MG/0.3 ML Syringe SUBCUT SCH (21:04)
[2016-10-11] MEDS: Ciprofloxacin 0.3% Ophth Soln 5 ML Bottle EARRT SCH ×4 (05:54→21:11)
[2016-10-11] MEDS: Clindamycin HCl 150 MG Cap PO SCH ×4 (05:55→22:10)
[2016-10-11] MEDS: Levothyroxine 75 MCG Tab PO SCH (08:29)
[2016-10-11] MEDS: Docusate Sodium 100 MG Cap PO SCH ×2 (08:39→21:09)
[2016-10-11] MEDS: Lactobacillus Rhamnosus GG (Probiotic) Cap PO SCH ×2 (08:40→21:08)
[2016-10-11] MEDS: Aspirin 81 MG Tab.EC PO SCH (08:41)
[2016-10-11] MEDS: Venlafaxine 75 MG Cap.ER PO SCH (08:41)
[2016-10-11] MEDS: Metoprolol Tartrate 25 MG Tab PO SCH (08:42)
[2016-10-11] MEDS: Polyethylene Glycol 3350 Powder 17 GM Packet PO SCH ×3 (08:43→21:09)
[2016-10-11] MEDS: Famotidine 20 MG Tab PO SCH (08:43)
[2016-10-11] MEDS: Lisinopril 10 MG Tab PO SCH (08:43)
[2016-10-11] MEDS: Mometasone Furoate Powder 220 MCG/Puff 14 Dose Inhaler INH SCH (09:21)
[2016-10-11] MEDS: Insulin Aspart 100 Units/ML 3 ML Pen SUBCUT SCH ×3 (09:32→21:14)
--- NOTE | 2016-10-11 11:18 | PCM.PN ---
- General Info Date of Service: 10/11/16 Functional Status: Reports: tolerating diet, urinating - Review of Systems General: Reports: Weakness. Denies: Fever, Chills Pulmonary: Reports: no symptoms Cardiovascular: Reports: No Symptoms Gastrointestinal: Reports: No symptoms Psychiatric: Reports: confusion Systems Review Comment:: This patient has been stable since yesterday although she does tend to sleep much of the time. Getting medications and can be somewhat challenging and that time she is fairly resistive. Vital signs have been stable and she has been afebrile. Family feel that they're not able to care for at home and have requested [facility] for restorative physical therapy and occupational therapy. - Patient Data Vitals - most recent: Last Vital Signs Temp 97.4 F 10/11/16 11:05 Pulse 48 L 10/11/16 11:05 Resp 18 10/11/16 11:05 BP 140/54 L 10/11/16 11:05 Pulse Ox 97 10/11/16 11:05 Weight - most recent: 148 lb 14.403 oz I&O - last 24 hours: Intake & Output 10/10/16 10/11/16 10/11/16 22:59 06:59 14:59 Intake Total 200 10 Balance 200 10 Lab Results last 24 hrs: Laboratory Results - last 24 hr 10/11/16 Range/Units 06:04 Sodium 143 (140-148) mmol/L Potassium 4.7 (3.6-5.2) mmol/L Chloride 113 H (100-108) mmol/L Carbon Dioxide 20 L (21-32) mmol/L Anion Gap 14.7 H (5.0-14.0) mmol/L BUN 22 H (7-18) mg/dL Creatinine 1.2 H (0.6-1.0) mg/dL Est Cr Clr Drug Dosing 29.80 mL/min Estimated GFR (MDRD) 43 L (>60) Glucose 141 H (74-106) mg/dL Calcium 8.1 L (8.5-10.1) mg/dL Med Orders - Current: Current Medications Acetaminophen (Tylenol) 650 mg PO Q4H PRN PRN Reason: Pain (Mild 1-3)/fever Albuterol (Proventil Neb Soln) 2.5 mg NEB Q4H PRN PRN Reason: Shortness Of Breath/wheezing Aspirin (Halfprin) 162 mg PO DAILY [facility] Last Admin: 10/11/16 08:41 Dose: 162 mg Ciprofloxacin (Ciloxan 0.3% Ophth Soln) 0 ml EARRT QID [facility] Last Admin: 10/11/16 10:03 Dose: 4 drop Clindamycin HCl (Cleocin) 450 mg PO Q6H [facility] Last Admin: 10/11/16 10:05 Dose: 450 mg Dextrose (Glutose 15) 15 gm PO ONETIME PRN PRN Reason: Hypoglycemia Dextrose/Water (Dextrose 50% In Water) 50 ml IV ONETIME PRN PRN Reason: Hypoglycemia Docusate Sodium (Colace) 100 mg PO BID [facility] Last Admin: 10/11/16 08:39 Dose: 100 mg Enoxaparin Sodium (Lovenox) 30 mg SUBCUT Q24H [facility] Last Admin: 10/10/16 21:04 Dose: 30 mg Famotidine (Pepcid) 20 mg PO DAILY [facility] Last Admin: 10/11/16 08:43 Dose: 20 mg Fluticasone Propionate (Flonase) 0 gm NASBOTH DAILY [facility] Insulin Aspart (Novolog) 0 unit SUBCUT ASDIRECTED [facility] PRN Reason: Protocol Last Admin: 10/11/16 09:32 Dose: 1 units Lactobacillus Rhamnosus (Culturelle) 2 cap PO BID [facility] Last Admin: 10/11/16 08:40 Dose: 2 cap Levothyroxine Sodium (Levothyroxine) 75 mcg PO ACBREAKFAST [facility] Last Admin: 10/11/16 08:29 Dose: 75 mcg Lisinopril (Prinivil) 10 mg PO DAILY [facility] Last Admin: 10/11/16 08:43 Dose: 10 mg Magnesium Hydroxide (Milk Of Magnesia) 30 ml PO Q12H PRN PRN Reason: Constipation Metoprolol Tartrate (Lopressor) 25 mg PO DAILY [facility] Last Admin: 10/11/16 08:42 Dose: 25 mg Mometasone Furoate (Asmanex 220 Mcg) 0 puff INH DAILY [facility] Last Admin: 10/11/16 09:21 Dose: Not Given Ondansetron HCl (Zofran) 4 mg IV Q4H PRN PRN Reason: Nausea/Vomiting Oxycodone HCl (Oxycodone) 5 mg PO Q4H PRN PRN Reason: Pain (moderate 4-6) Polyethylene Glycol (Miralax) 17 gm PO BID [facility] Last Admin: 10/11/16 08:43 Dose: 17 gm Simvastatin (Zocor) 40 mg PO BEDTIME [facility] Last Admin: 10/10/16 20:12 Dose: 40 mg Sodium Chloride (Saline Flush) 10 ml FLUSH ASDIRECTED PRN PRN Reason: Keep Vein Open Venlafaxine HCl (Effexor Xr) 75 mg PO DAILY [facility] Last Admin: 10/11/16 08:41 Dose: 75 mg Discontinued Medications Bisacodyl (Dulcolax) 10 mg RECTAL ONETIME ONE Stop: 10/09/16 00:55 Last Admin: 10/09/16 01:37 Dose: 10 mg Bisacodyl (Dulcolax) 10 mg RECTAL ONETIME ONE Stop: 10/09/16 08:46 Last Admin: 10/09/16 09:48 Dose: 10 mg Ciprofloxacin (Ciloxan 0.3% Ophth Soln) 0 ml EARRT QID [facility] Ciprofloxacin (Ciloxan 0.3% Ophth Soln) 0 ml EARRT QID [facility] Ciprofloxacin/Dexamethasone (Ciprodex Otic Susp) 0 ml EARRT QID [facility] Last Admin: 10/10/16 14:45 Dose: Not Given Docusate Sodium (Colace) 100 mg PO BID PRN PRN Reason: Constipation Last Admin: 10/09/16 09:34 Dose: 100 mg Enoxaparin Sodium (Lovenox) 30 mg SUBCUT DAILY@0000 [facility] Last Admin: 10/09/16 01:37 Dose: 30 mg Sodium Chloride (Normal Saline) 1,000 mls @ 999 mls/hr IV ASDIRECTED [facility] Last Admin: 10/08/16 19:25 Dose: 999 mls/hr Sodium Chloride (Normal Saline) 1,000 mls @ 250 mls/hr IV ASDIRECTED [facility] Last Admin: 10/08/16 20:35 Dose: 250 mls/hr Sodium Chloride (Normal Saline) 500 mls @ 250 mls/hr IV ONETIME ONE Stop: 10/09/16 02:53 Last Admin: 10/09/16 01:30 Dose: 250 mls/hr Sodium Chloride (Normal Saline) 1,000 mls @ 125 mls/hr IV ASDIRECTED [facility] Last Admin: 10/09/16 03:44 Dose: 125 mls/hr Sodium Chloride (Normal Saline) 1,000 mls @ 50 mls/hr IV ASDIRECTED [facility] Last Admin: 10/09/16 20:45 Dose: 50 mls/hr Insulin Aspart (Novolog) Confirm Administered Dose 300 unit .ROUTE .STK-MED ONE Stop: 10/09/16 13:24 Last Admin: 10/09/16 13:36 Dose: Not Given Polyethylene Glycol (Miralax) 17 gm PO DAILY PRN PRN Reason: Constipation Last Admin: 10/09/16 09:35 Dose: 17 gm Sodium Biphosphate/Sodium Phosphate (Fleet Enema) 133 ml RECTAL ONETIME PRN PRN Reason: Constipation Stop: 10/09/16 18:00 Sodium Polystyrene Sulfonate (Kayexalate) 30 gm RECTAL NOW ONE Stop: 10/09/16 00:55 Last Admin: 10/09/16 01:37 Dose: 30 gm Sodium Polystyrene Sulfonate (Kayexalate) 30 gm PO ONETIME ONE Stop: 10/10/16 14:31 Last Admin: 10/10/16 15:04 Dose: Not Given - Exam Quality Assessment: DVT prophylaxis General: alert, no acute distress Lungs: Clear to auscultation, Normal respiratory effort Cardiovascular: Regular Rate, Regular Rhythm, No Murmurs Abdomen: bowel sounds present, soft, no tenderness, no distension Extremities: no edema Skin: warm, dry, intact - Problem List Review Problem List Initiated/Reviewed/Updated: Yes - My Orders Last 24 Hours: My Active Orders 10/10/16 11:00 Ciprofloxacin [Ciloxan 0.3% Ophth Soln] 0 ml EARRT QID 10/10/16 13:45 Convert IV to Saline Lock [OM.PC] Routine 10/11/16 07:37 GLUCOSE POC LAB TO COLLECT [POC] QIDACANDBED 10/11/16 11:00 Fluticasone Propionate [Flonase] See Dose Instructions NASBOTH DAILY 10/11/16 11:30 GLUCOSE POC LAB TO COLLECT [POC] QIDACANDBED 10/11/16 16:30 GLUCOSE POC LAB TO COLLECT [POC] QIDACANDBED 10/11/16 21:00 GLUCOSE POC LAB TO COLLECT [POC] QIDACANDBED 10/12/16 07:30 GLUCOSE POC LAB TO COLLECT [POC] QIDACANDBED 10/12/16 11:30 GLUCOSE POC LAB TO COLLECT [POC] QIDACANDBED 10/12/16 16:30 GLUCOSE POC LAB TO COLLECT [POC] QIDACANDBED 10/12/16 21:00 GLUCOSE POC LAB TO COLLECT [POC] QIDACANDBED 10/13/16 07:30 GLUCOSE POC LAB TO COLLECT [POC] QIDACANDBED 10/13/16 11:30 GLUCOSE POC LAB TO COLLECT [POC] QIDACANDBED 10/13/16 16:30 GLUCOSE POC LAB TO COLLECT [POC] QIDACANDBED 10/13/16 21:00 GLUCOSE POC LAB TO COLLECT [POC] QIDACANDBED 10/14/16 07:30 GLUCOSE POC LAB TO COLLECT [POC] QIDACANDBED 10/14/16 11:30 GLUCOSE POC LAB TO COLLECT [POC] QIDACANDBED 10/14/16 16:30 GLUCOSE POC LAB TO COLLECT [POC] QIDACANDBED 10/14/16 21:00 GLUCOSE POC LAB TO COLLECT [POC] QIDACANDBED 10/15/16 07:30 GLUCOSE POC LAB TO COLLECT [POC] QIDACANDBED 10/15/16 11:30 GLUCOSE POC LAB TO COLLECT [POC] QIDACANDBED 10/15/16 16:30 GLUCOSE POC LAB TO COLLECT [POC] QIDACANDBED 10/15/16 21:00 GLUCOSE POC LAB TO COLLECT [POC] QIDACANDBED 10/16/16 07:30 GLUCOSE POC LAB TO COLLECT [POC] QIDACANDBED 10/16/16 11:30 GLUCOSE POC LAB TO COLLECT [POC] QIDACANDBED 10/16/16 16:30 GLUCOSE POC LAB TO COLLECT [POC] QIDACANDBED 10/16/16 21:00 GLUCOSE POC LAB TO COLLECT [POC] QIDACANDBED 10/17/16 07:30 GLUCOSE POC LAB TO COLLECT [POC] QIDACANDBED 10/17/16 11:30 GLUCOSE POC LAB TO COLLECT [POC] QIDACANDBED 10/17/16 16:30 GLUCOSE POC LAB TO COLLECT [POC] QIDACANDBED 10/17/16 21:00 GLUCOSE POC LAB TO COLLECT [POC] QIDACANDBED 10/18/16 07:30 GLUCOSE POC LAB TO COLLECT [POC] QIDACANDBED 10/18/16 11:30 GLUCOSE POC LAB TO COLLECT [POC] QIDACANDBED 10/18/16 16:30 GLUCOSE POC LAB TO COLLECT [POC] QIDACANDBED 10/18/16 21:00 GLUCOSE POC LAB TO COLLECT [POC] QIDACANDBED 10/19/16 07:30 GLUCOSE POC LAB TO COLLECT [POC] QIDACANDBED 10/19/16 11:30 GLUCOSE POC LAB TO COLLECT [POC] QIDACANDBED 10/19/16 16:30 GLUCOSE POC LAB TO COLLECT [POC] QIDACANDBED 10/19/16 21:00 GLUCOSE POC LAB TO COLLECT [POC] QIDACANDBED - Plan Plan:: ASSESSMENT AND PLAN WEAKNESS AND DEHYDRATION-no evidence of underlying infection, metabolic abnormality, or new medication effect. MRI was negative for any evidence of new CVA. It did show evidence of some mastoiditis on the right and a maxillary sinusitis on the left -Neuro checks every 4 hours -Saline lock IV -Clindamycin 450 mg by mouth every 6 hours -Physical therapy consult in a.m. -MRI with and without contrast in a.m. CONSTIPATION-resolved -Twice daily Colace -Twice daily lactulose HYPERKALEMIA-resolved CHRONIC KIDNEY DISEASE STAGE III-improved with hydration -Saline lock IV -Closely monitor urine output and renal function during hospital stay MILD HYPERCHLOREMIC METABOLIC ACIDOSIS-significantly improved since yesterday TYPE 2 DIABETES MELLITUS -Hold scheduled insulins and oral hypoglycemic therapy until oral intake improves -4 times a day glucometers -Low-dose sliding scale NovoLog HYPOTHYROIDISM -Continue outpatient thyroid replacement medication -TSH with a.m. labs LACTIC ACIDOSIS-resolved with hydration MAINTENANCE ISSUES -DVT prophylaxis; Lovenox 30 mg subcutaneous daily -GI prophylaxis; continue outpatient H2 jonathan therapy -Pulliam catheter; not indicated -Nutrition; regular diet -Nicotine dependence; not required CODE STATUS-FULL CODE ADMISSION STATUS-patient will be admitted to inpatient status, expect at least a 2 night hospital stay for evaluation and management of problems as outlined above. At the time of this admission I do not reasonably expected evaluation and management of this problem will require more than a 96 hour hospital stay. DISPOSITION-anticipate discharge to [facility] for restorative physical therapy and occupational therapy PRIMARY CARE PROVIDER-Dr. Zhong
--- NOTE | 2016-10-11 11:30 | PCM.DCSUM1 ---
Discharge Summary - Hospital Course Brief History: This patient is a 81-year-old woman who was admitted through the emergency department with increased weakness and dehydration resulting in acute on chronic renal insufficiency and hyperkalemia. - Discharge Data Discharge Date: 10/12/16 Discharge Disposition: DC/Tfer to SNF 03 Condition: Fair - Discharge Diagnosis/Problem(s) (1) Multi-infarct dementia SNOMED Code(s): 32174446, 188009251 ICD Code: F01.50 - VASCULAR DEMENTIA WITHOUT BEHAVIORAL DISTURBANCE Status : Acute Current Visit: Yes (2) Hyperkalemia SNOMED Code(s): 00317122 ICD Code: E87.5 - HYPERKALEMIA Status: Acute Current Visit: Yes (3) CKD (chronic kidney disease) stage 3, GFR 30-59 ml/min SNOMED Code(s): 270326461 ICD Code: N18.3 - CHRONIC KIDNEY DISEASE, STAGE 3 (MODERATE) Status: Acute Current Visit: Yes (4) Maxillary sinusitis SNOMED Code(s): 96439593 ICD Code: 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 PT Reason for Consult: Strengthening This query below is only for informational purposes and is not editable. 10/09/16 11:55 Consult to Speech Language Pathology [PREPRESS SUPERVISOR Evaluation and Treatment] [CONS] Routine Please Evaluate and Treat PREPRESS SUPERVISOR Reason for Consult: swallowing slow with occasional coughing This query below is only for informational purposes and is not editable. Admission Diagnosis/Problem: CVA, Cerebrovascular accident Hospital Course: Ms. 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 She has been very debilitated over the past several years because of ongoing recurrent CVAs. She was brought into the emergency department by her because of progressive weakness with dehydration and inability to get out of bed. On initial assessment was noted to have acute on chronic renal insufficiency with elevation in her creatinine as well as hyperkalemia. There was initial suspicion of urinary tract infection but urinalysis showed no obvious infection and she was not started on antibiotics at the time of admission. She was given Kayexalate for management of her creatinine of 6.0 and IV fluids for hydration. ET scan was obtained in the emergency department and showed no evidence of acute cerebral hemorrhage. Following day MRI was obtained without contrast because of elevated creatinine. It showed no evidence of acute or subacute CVA but did document multiple previous cerebral as well as lacunar infarcts. She was noted to have some fluid in the right mastoid as well as evidence of a left maxillary sinusitis. She was started on oral antibiotic therapy with clindamycin as well as ciprofloxacin drops in the right ear. Initially she also had significant lactic acidosis this was felt to be set secondary to dehydration and did improve with IV fluids. She also was found to have a hyperchloremic metabolic acidosis that improved throughout her hospital stay. She remained fairly weak and lethargic although oral intake did seem to be improved, she was intermittently resistant to taking medications. Because of ongoing weakness family has requested halfway placement for restorative physical therapy and occupational therapy. She will remain on outpatient antibiotics from management of her sinus infection. Activity will be as tolerated and she will resume her usual diet. Follow-up with primary care will be at the halfway as needed. - Patient Instructions Diet: Usual Diet as Tolerated Activity: As Tolerated Other/Special Instructions: Daily physical therapy and occupational therapy while at the halfway. - Discharge Plan Prescriptions/Med Rec: Ciprofloxacin [Ciloxan 0.3% [facility] Soln] 2 drop EARRT QID #1 bottle Clindamycin HCl 300 mg PO QID #44 capsule Fluticasone Propionate [Flonase] 2 spray NASBOTH DAILY #1 bottle Lactobacillus Rhamnosus GG [Culturelle] 2 cap PO BID #56 cap Home Medications: Home Meds Aspirin [Halfprin] 162 mg PO DAILY 10/08/16 [History] Cholecalciferol (Vitamin D3) [Vitamin D3] 2,000 unit PO DAILY 10/08/16 [History] Docusate Sodium 100 mg PO DAILY 10/08/16 [History] Famotidine [Pepcid] 20 mg PO BID 10/08/16 [History] Fluticasone Propionate [Flovent] 50 mcg IN BID 10/08/16 [History] Folic Acid/Vit B Complex and C [Eql Super B Complex Tablet] 400 mcg PO DAILY [History] Insulin Aspart [Novolog Flexpen] 8 units SQ TID PRN 10/08/16 [History] Levothyroxine 75 mcg PO ACBREAKFAST 10/08/16 [History] Lisinopril [Zestril] 10 mg PO DAILY 10/08/16 [History] Loratadine [Claritin] 10 mg PO DAILY 10/08/16 [History] Metoprolol Tartrate [Lopressor] 25 mg PO DAILY 10/08/16 [History] Polyethylene Glycol 3350 [MiraLAX] 17 gm PO DAILY 10/08/16 [History] Simvastatin [Zocor] 40 mg PO DAILY 10/08/16 [History] Venlafaxine [Effexor] 75 mg PO DAILY 10/08/16 [History] glipiZIDE [Glipizide ER] 5 mg PO DAILY 10/08/16 [History] metFORMIN [Glucophage] 1,000 mg PO BIDMEALS 10/08/16 [History] Ciprofloxacin [Ciloxan 0.3% Ophth Soln] 2 drop EARRT QID #1 bottle 10/11/16 [Rx] Clindamycin HCl 300 mg PO QID #44 capsule 10/11/16 [Rx] Fluticasone Propionate [Flonase] 2 spray NASBOTH DAILY #1 bottle 10/11/16 [Rx] Lactobacillus Rhamnosus GG [Culturelle] 2 cap PO BID #56 cap 10/11/16 [Rx] Forms: ED Department Discharge Referrals: Frannie Zhong MD [Primary Care Provider] - - Patient Data Vitals - Most Recent: Last Vital Signs Temp 97.4 F 10/11/16 11:05 Pulse 48 L 10/11/16 11:05 Resp 18 10/11/16 11:05 BP 140/54 L 10/11/16 11:05 Pulse Ox 97 10/11/16 11:05 Weight - Most Recent: 148 lb 14.403 oz I&O - Last 24 hours: Intake & Output 10/10/16 10/11/16 10/11/16 22:59 06:59 14:59 Intake Total 200 10 Balance 200 10 Lab Results - Last 24 hrs: Laboratory Results - last 24 hr 10/11/16 Range/Units 06:04 Sodium 143 (140-148) mmol/L Potassium 4.7 (3.6-5.2) mmol/L Chloride 113 H (100-108) mmol/L Carbon Dioxide 20 L (21-32) mmol/L Anion Gap 14.7 H (5.0-14.0) mmol/L BUN 22 H (7-18) mg/dL Creatinine 1.2 H (0.6-1.0) mg/dL Est Cr Clr Drug Dosing 29.80 mL/min Estimated GFR (MDRD) 43 L (>60) Glucose 141 H (74-106) mg/dL Calcium 8.1 L (8.5-10.1) mg/dL Med Orders - Current: Current Medications Acetaminophen (Tylenol) 650 mg PO Q4H PRN PRN Reason: Pain (Mild 1-3)/fever Albuterol (Proventil Neb Soln) 2.5 mg NEB Q4H PRN PRN Reason: Shortness Of Breath/wheezing Aspirin (Halfprin) 162 mg PO DAILY [facility] Last Admin: 10/11/16 08:41 Dose: 162 mg Ciprofloxacin (Ciloxan 0.3% Ophth Soln) 0 ml EARRT QID [facility] Last Admin: 10/11/16 10:03 Dose: 4 drop Clindamycin HCl (Cleocin) 450 mg PO Q6H [facility] Last Admin: 10/11/16 10:05 Dose: 450 mg Dextrose (Glutose 15) 15 gm PO ONETIME PRN PRN Reason: Hypoglycemia Dextrose/Water (Dextrose 50% In Water) 50 ml IV ONETIME PRN PRN Reason: Hypoglycemia Docusate Sodium (Colace) 100 mg PO BID [facility] Last Admin: 10/11/16 08:39 Dose: 100 mg Enoxaparin Sodium (Lovenox) 30 mg SUBCUT Q24H [facility] Last Admin: 10/10/16 21:04 Dose: 30 mg Famotidine (Pepcid) 20 mg PO DAILY [facility] Last Admin: 10/11/16 08:43 Dose: 20 mg Fluticasone Propionate (Flonase) 0 gm NASBOTH DAILY [facility] Insulin Aspart (Novolog) 0 unit SUBCUT ASDIRECTED [facility] PRN Reason: Protocol Last Admin: 10/11/16 09:32 Dose: 1 units Lactobacillus Rhamnosus (Culturelle) 2 cap PO BID [facility] Last Admin: 10/11/16 08:40 Dose: 2 cap Levothyroxine Sodium (Levothyroxine) 75 mcg PO ACBREAKFAST [facility] Last Admin: 10/11/16 08:29 Dose: 75 mcg Lisinopril (Prinivil) 10 mg PO DAILY [facility] Last Admin: 10/11/16 08:43 Dose: 10 mg Magnesium Hydroxide (Milk Of Magnesia) 30 ml PO Q12H PRN PRN Reason: Constipation Metoprolol Tartrate (Lopressor) 25 mg PO DAILY [facility] Last Admin: 10/11/16 08:42 Dose: 25 mg Mometasone Furoate (Asmanex 220 Mcg) 0 puff INH DAILY [facility] Last Admin: 10/11/16 09:21 Dose: Not Given Ondansetron HCl (Zofran) 4 mg IV Q4H PRN PRN Reason: Nausea/Vomiting Oxycodone HCl (Oxycodone) 5 mg PO Q4H PRN PRN Reason: Pain (moderate 4-6) Polyethylene Glycol (Miralax) 17 gm PO BID [facility] Last Admin: 10/11/16 08:43 Dose: 17 gm Simvastatin (Zocor) 40 mg PO BEDTIME [facility] Last Admin: 10/10/16 20:12 Dose: 40 mg Sodium Chloride (Saline Flush) 10 ml FLUSH ASDIRECTED PRN PRN Reason: Keep Vein Open Venlafaxine HCl (Effexor Xr) 75 mg PO DAILY [facility] Last Admin: 10/11/16 08:41 Dose: 75 mg Discontinued Medications Bisacodyl (Dulcolax) 10 mg RECTAL ONETIME ONE Stop: 10/09/16 00:55 Last Admin: 10/09/16 01:37 Dose: 10 mg Bisacodyl (Dulcolax) 10 mg RECTAL ONETIME ONE Stop: 10/09/16 08:46 Last Admin: 10/09/16 09:48 Dose: 10 mg Ciprofloxacin (Ciloxan 0.3% Ophth Soln) 0 ml EARRT QID [facility] Ciprofloxacin (Ciloxan 0.3% Ophth Soln) 0 ml EARRT QID [facility] Ciprofloxacin/Dexamethasone (Ciprodex Otic Susp) 0 ml EARRT QID [facility] Last Admin: 10/10/16 14:45 Dose: Not Given Docusate Sodium (Colace) 100 mg PO BID PRN PRN Reason: Constipation Last Admin: 10/09/16 09:34 Dose: 100 mg Enoxaparin Sodium (Lovenox) 30 mg SUBCUT DAILY@0000 [facility] Last Admin: 10/09/16 01:37 Dose: 30 mg Sodium Chloride (Normal Saline) 1,000 mls @ 999 mls[facility] Last Admin: 10/08/16 19:25 Dose: 999 mls/hr Sodium Chloride (Normal Saline) 1,000 mls @ 250 mls/hr [facility] Last Admin: 10/08/16 20:35 Dose: 250 mls/hr Sodium Chloride (Normal Saline) 500 mls @ 250 mls/hr IV ONETIME ONE Stop: 10/09/16 02:53 Last Admin: 10/09/16 01:30 Dose: 250 mls/hr Sodium Chloride (Normal Saline) 1,000 mls @ 125 mls/hr [facility] Last Admin: 10/09/16 03:44 Dose: 125 mls/hr Sodium Chloride (Normal Saline) 1,000 mls @ 50 mls/hr [facility] Last Admin: 10/09/16 20:45 Dose: 50 mls/hr Insulin Aspart (Novolog) Confirm Administered Dose 300 unit .ROUTE .STK-MED ONE Stop: 10/09/16 13:24 Last Admin: 10/09/16 13:36 Dose: Not Given Polyethylene Glycol (Miralax) 17 gm PO DAILY PRN PRN Reason: Constipation Last Admin: 10/09/16 09:35 Dose: 17 gm Sodium Biphosphate/Sodium Phosphate (Fleet Enema) 133 ml RECTAL ONETIME PRN PRN Reason: Constipation Stop: 10/09/16 18:00 Sodium Polystyrene Sulfonate (Kayexalate) 30 gm RECTAL NOW ONE Stop: 10/09/16 00:55 Last Admin: 10/09/16 01:37 Dose: 30 gm Sodium Polystyrene Sulfonate (Kayexalate) 30 gm PO ONETIME ONE Stop: 10/10/16 14:31 Last Admin: 10/10/16 15:04 Dose: Not Given *Q Meaningful Use (DIS) - VTE *Q VTE Criteria *Q: - Stroke *Q Stroke Criteria *Q: - AMI *Q AMI Criteria *Q:
[2016-10-11] MEDS: Fluticasone Propionate Nasal Spray 16 GM Bottle NASBOTH SCH (12:04)
[2016-10-11] MEDS: Simvastatin 20 MG Tab PO SCH (21:09)
[2016-10-11] MEDS: Enoxaparin 30 MG/0.3 ML Syringe SUBCUT SCH (21:10)
[2016-10-12] MEDS: Clindamycin HCl 150 MG Cap PO SCH ×2 (05:02→11:13)
[2016-10-12] MEDS: Ciprofloxacin 0.3% Ophth Soln 5 ML Bottle EARRT SCH ×2 (05:02→09:05)
[2016-10-12] MEDS: Polyethylene Glycol 3350 Powder 17 GM Packet PO SCH (08:49)
[2016-10-12] MEDS: Lactobacillus Rhamnosus GG (Probiotic) Cap PO SCH (08:51)
[2016-10-12] MEDS: Levothyroxine 75 MCG Tab PO SCH (08:51)
[2016-10-12] MEDS: Famotidine 20 MG Tab PO SCH (08:51)
[2016-10-12] MEDS: Lisinopril 10 MG Tab PO SCH (08:52)
[2016-10-12] MEDS: Aspirin 81 MG Tab.EC PO SCH (08:52)
[2016-10-12] MEDS: Venlafaxine 75 MG Cap.ER PO SCH (08:52)
[2016-10-12] MEDS: Docusate Sodium 100 MG Cap PO SCH (08:52)
[2016-10-12] MEDS: Metoprolol Tartrate 25 MG Tab PO SCH (08:52)
[2016-10-12] MEDS: Fluticasone Propionate Nasal Spray 16 GM Bottle NASBOTH SCH (08:53)
[2016-10-12] MEDS: Insulin Aspart 100 Units/ML 3 ML Pen SUBCUT SCH ×2 (08:56→12:20)
[2016-10-12] MEDS: Mometasone Furoate Powder 220 MCG/Puff 14 Dose Inhaler INH SCH (09:30)
[2016-10-12 14:33] VITALS: BP 139/63
== END 2016-10-12 15:00 | DRG 683 ==
LOC: JP.ED 19:02 → JP.ICU 10-09 00:13 → JP.MS 10-09 18:15
PROVIDERS: ADMIT Hospitalist; ATTEND Internal Medicine
DX: N17.9 Acute kidney failure, unspecified (principal); I69.954 Hemiplegia and hemiparesis following unspecified cerebrovascular disease affecting left non-dominant side; E87.2 Acidosis; E86.0 Dehydration; I12.9 Hypertensive chronic kidney disease with stage 1 through stage 4 chronic kidney disease, or unspecified chronic kidney disease; E11.22 Type 2 diabetes mellitus with diabetic chronic kidney disease; N18.3 Chronic kidney disease, stage 3 (moderate); Z79.4 Long term (current) use of insulin; I69.920 Aphasia following unspecified cerebrovascular disease; E87.5 Hyperkalemia; E03.9 Hypothyroidism, unspecified; K59.00 Constipation, unspecified; I69.919 Unspecified symptoms and signs involving cognitive functions following unspecified cerebrovascular disease; F01.50 Vascular dementia, unspecified severity, without behavioral disturbance, psychotic disturbance, mood disturbance, and anxiety; E78.00 Pure hypercholesterolemia, unspecified; K21.9 Gastro-esophageal reflux disease without esophagitis; J32.0 Chronic maxillary sinusitis; M54.9 Dorsalgia, unspecified; G89.29 Other chronic pain; Z95.1 Presence of aortocoronary bypass graft; Z95.5 Presence of coronary angioplasty implant and graft; H54.7 Unspecified visual loss; Z79.82 Long term (current) use of aspirin
CPT/HCPCS: 36415; 36600; 70450; 71010 ×2; 80053; 81001; 82803; 83605; 85025; 87040 ×2; 96360; 96361; 99285; J7040 ×2; 70551; 70551-26; 80048; 82962; 84443; 86140; 92610-GN; 94640-76; 94664; 97110-GP; 97162-GP; 97530-GP; A9270-GY; J1650

== ENCOUNTER 2020-04-03 17:31 | Observation (INO) | payer MEDICARE ==
[2020-04-03] MEDS ORDERED: Sodium Chloride 0.9% 10 ML Syringe FLUSH PRN ×2 (17:35→22:28)
--- NOTE | 2020-04-03 17:41 | EDM.PDOC ---
<Niraj Espinoza G - Last Filed: 04/03/20 17:53> ED HPI GENERAL MEDICAL PROBLEM - General Chief Complaint: General Stated Complaint: MEDICAL [facility] Time Seen by Provider: 04/03/20 17:36 Source of Information: Reports: Patient, EMS, Old Records, RN History Limitations: Reports: No Limitations - History of Present Illness INITIAL COMMENTS - FREE TEXT/NARRATIVE: 84 yo female was seen about a week ago in the [facility] and started on an antibiotic for a UTI. Starting last night she became lethargic and has not eaten today. Hasn't taken any of her meds today. BS running low. Neither patient or EMS were able to tell me what antibiotic she was on. Lives with at home. Clinic notes suggest the UTI dx was 03/11 and she was tx'd with Cipro floxacin( also did not know what antibiotic his was on). Culture suggested sensitivity to Ciprofloxacin. Onset: Gradual Onset Date: 04/02/20 Duration: Day(s): (1), Getting Worse Location: Reports: Generalized Quality: Reports: Other (pain not reported) Severity: Moderate Improves with: Reports: None Worsens with: Reports: Other (? time) Context: Reports: Other (See HPI) Associated Symptoms: Reports: Loss of Appetite, Malaise, Weakness (generalized). 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 (see below) (none) - Related Data Allergies Allergy/AdvReac Type Severity Reaction Status Date / Time No Known Allergies Allergy Verified 10/08/16 19:33 Home Meds: Home Meds Aspirin [Halfprin] 162 mg PO DAILY 10/08/16 [History] Cholecalciferol (Vitamin D3) [Vitamin D3] 2,000 unit PO DAILY 10/08/16 [History] Docusate Sodium 100 mg PO DAILY 10/08/16 [History] Famotidine [Pepcid] 20 mg PO BID 10/08/16 [History] Folic Acid/Vit B Complex and C [Eql Super B Complex Tablet] 400 mcg PO DAILY 10/08/16 [History] Levothyroxine 75 mcg PO ACBREAKFAST 10/08/16 [History] Loratadine [Claritin] 10 mg PO DAILY 10/08/16 [History] Metoprolol Tartrate [Lopressor] 25 mg PO BID 10/08/16 [History] Polyethylene Glycol 3350 [MiraLAX] 17 gm PO DAILY 10/08/16 [History] Simvastatin [Zocor] 40 mg PO DAILY 10/08/16 [History] Venlafaxine [Effexor] 75 mg PO DAILY 10/08/16 [History] glipiZIDE [Glipizide ER] 10 mg PO DAILY 10/08/16 [History] metFORMIN [Glucophage] 1,000 mg PO BIDMEALS 10/08/16 [History] Fluticasone Propionate [Flonase] 2 spray NASBOTH DAILY #1 bottle 10/11/16 [Rx] Glycopyrrolate 1 mg PO ASDIRECTED PRN 04/03/20 [History] Insulin Aspart [NovoLOG] 8 units SUBCNJ TID 04/03/20 [History] Omeprazole 20 mg PO DAILY 04/03/20 [History] Ranitidine HCl [Ranitidine] 150 mg PO BID PRN 04/03/20 [History] amLODIPine [Norvasc] 5 mg PO DAILY 04/03/20 [History] Past Medical History HEENT History: Reports: Allergic Rhinitis, Impaired Vision, Other (See Below) Other HEENT History: problems swallowing Cardiovascular History: Reports: High Cholesterol, Hypertension, Stents Gastrointestinal History: Reports: GERD Genitourinary History: Reports: Urinary Incontinence 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: Musculoskeletal History: Reports: Back Pain, Chronic Neurological History: Reports: CVA, TIA Psychiatric History: Reports: Dementia Endocrine/Metabolic History: Reports: Diabetes, Type II Hematologic History: Reports: Blood Transfusion(s) Oncologic (Cancer) History: Reports: Other (See Below) Other Oncologic History: many years ago - cant recall which kind - Past Surgical History Cardiovascular Surgical History: Reports: Coronary Artery Bypass, Coronary Artery Stent Female Surgical History: Reports: Hysterectomy Social & Family History - Caffeine Use Caffeine Use: Reports: Soda ED ROS GENERAL - Review of Systems Review Of Systems: See Below Constitutional: Reports: Malaise, Weakness (generalized), Decreased Appetite HEENT: Reports: No Symptoms Respiratory: Reports: No Symptoms Cardiovascular: Reports: No Symptoms Endocrine: Reports: Low Glucose (70's at home today) GI/Abdominal: Reports: Decreased Appetite : Reports: Other (none reported. Dx'd recently with UTI.) Musculoskeletal: Reports: No Symptoms Skin: Reports: No Symptoms Neurological: Reports: Confusion (mild, recent onset). Denies: Headache Psychiatric: Reports: No Symptoms ED EXAM, GENERAL - Physical Exam Exam: See Below Exam Limited By: No Limitations General Appearance: Alert, WD/WN, No Apparent Distress Eye Exam: Bilateral Eye: Normal Inspection, PERRL Ears: Normal External Exam, Normal Canal, Hearing Grossly Normal, Normal TMs Ear Exam: Bilateral Ear: Auricle Normal, Canal Normal, TM normal Nose: Normal Inspection, No Blood Throat/Mouth: Normal Inspection, Normal Lips, Normal Oropharynx, Normal Voice, No Airway Compromise, Other (whispery voice, not able to answer questions appropriately. ) Head: Atraumatic, Normocephalic Neck: Normal Inspection Respiratory/Chest: No Respiratory Distress, Lungs Clear, Normal Breath Sounds, No Accessory Muscle Use Cardiovascular: Regular Rate, Rhythm, No Edema GI/Abdominal: Normal Bowel Sounds, Soft, Non-Tender, No Distention Back Exam: Normal Inspection Extremities: Normal Inspection, Normal Range of Motion, Non-Tender, No Pedal Edema Neurological: Alert, CN II-XII Intact, No Motor/Sensory Deficits Psychiatric: Normal Affect, Normal Mood Skin Exam: Warm, Dry, Intact, Normal Color, No Rash Departure - Departure Disposition: Admitted As Inpatient 68 Clinical Impression: History of stroke, UTI (urinary tract infection), Dehydration - Discharge Information Referrals: PCP,None [Primary Care Provider] - Forms: ED Department Discharge <Christian Chavez - Last Filed: 04/03/20 20:49> Course - Vital Signs Text/Narrative:: This patient has a history of urosepsis frequently apparently in the past but does not appear to be septic today although does have a urinary tract infection She really cannot get up on her own and requires full-time assistance by her . It is my perception that she would benefit from a night in the hospital and social worker delinquency prevention evaluation. She is given Rocephin initially in the department Last Recorded V/S: Last Vital Signs Temp 36.8 C 04/03/20 18:01 Pulse 60 04/03/20 20:32 Resp 14 04/03/20 18:01 BP 170/61 H 04/03/20 20:32 Pulse Ox 99 04/03/20 20:32 - Orders/Labs/Meds Orders: Active Orders 24 hr Category Date Time Status EKG Documentation Completion [RC] ASDIRECTED Care 04/03/20 18:31 Active Abdomen 1V Flat [CR] Stat Exams 04/03/20 18:29 Taken Chest 1V Frontal [CR] Stat Exams 04/03/20 18:29 Taken Sodium Chloride 0.9% [Normal Saline] 1,000 ml Med 04/03/20 18:30 Active IV ASDIRECTED Sodium Chloride 0.9% [Saline Flush] Med 04/03/20 17:35 Active 10 ml FLUSH ASDIRECTED PRN Saline Lock Insert [OM.PC] Routine Oth 04/03/20 17:35 Ordered EKG 12 Lead [EK] Stat Ther 04/03/20 18:28 Ordered Medication Orders Sodium Chloride (Normal Saline) 1,000 mls @ 0 mls/hr IV ASDIRECTED [facility] Last Admin: 04/03/20 19:11 Dose: 999 mls/hr Documented by: MARCOS Sodium Chloride (Saline Flush) 10 ml FLUSH ASDIRECTED PRN PRN Reason: Keep Vein Open Last Admin: 04/03/20 18:07 Dose: 10 ml Documented by: [id number] Labs: Laboratory Tests 04/03/20 04/03/20 04/03/20 Range/Units 17:38 18:02 18:02 WBC 9.2 (4.5-11.0) K/uL RBC 4.47 (3.30-5.50) M/uL Hgb 11.6 L (12.0-15.0) g/dL Hct 38.5 (36.0-48.0) % MCV 86 (80-98) fL MCH 26 L (27-31) pg MCHC 30 L (32-36) % Plt Count 260 (150-400) K/uL ABG Hemoglobin (12.0-16.0) g/dL ABG Oxyhemoglobin % ABG Carboxyhemoglobin (0.0-1.6) % ABG Methemoglobin % VBG pH (7.350-7.450) VBG pCO2 mm/Hg VBG pO2 mm/Hg VBG HCO3 mmol/L VBG Total CO2 mmol/L VBG O2 Saturation VBG O2 Content %vol VBG Base Excess mm/L O2 Delivery Device Sodium 142 (140-148) mmol/L Potassium 4.8 (3.6-5.2) mmol/L Chloride 104 (100-108) mmol/L Carbon Dioxide 26 (21-32) mmol/L Anion Gap 11.6 (5.0-14.0) mmol/L BUN 16 (7-18) mg/dL Creatinine 1.3 H (0.6-1.0) mg/dL Est Cr Clr Drug Dosing 28.81 mL/min Estimated GFR (MDRD) 39 L (>60) Glucose 101 (74-106) mg/dL POC Glucose 94 (74-106) MG/DL Calcium 9.5 D (8.5-10.1) mg/dL Total Bilirubin (0.2-1.0) mg/dL AST (15-37) U/L ALT (12-78) U/L Alkaline Phosphatase (46-116) U/L Troponin I < 0.017 (0.000-0.056) ng/mL C-Reactive Protein (0.0-0.3) mg/dL Total Protein (6.4-8.2) g/dL Albumin (3.4-5.0) g/dL Globulin (2.3-3.5) g/dL Albumin/Globulin Ratio (1.2-2.2) Urine Color (YELLOW) Urine Appearance (CLEAR) Urine pH (5.0-8.0) Ur Specific [place] (1.008-1.030) Urine Protein (NEGATIVE) mg/dL Urine Glucose (UA) (NEGATIVE) mg/dL Urine Ketones (NEGATIVE) mg/dL Urine Occult Blood (NEGATIVE) Urine Nitrite (NEGATIVE) Urine Bilirubin (NEGATIVE) Urine Urobilinogen (0.2-1.0) EU/dL Ur Leukocyte Esterase (NEGATIVE) Urine RBC (0-5) Urine WBC (0-5) Ur Epithelial Cells Amorphous Sediment Urine Bacteria Urine Mucus 04/03/20 04/03/20 04/03/20 Range/Units 18:05 18:05 18:51 WBC (4.5-11.0) K/uL RBC (3.30-5.50) M/uL Hgb (12.0-15.0) g/dL Hct (36.0-48.0) % MCV (80-98) fL MCH (27-31) pg MCHC (32-36) % Plt Count (150-400) K/uL ABG Hemoglobin 11.8 L (12.0-16.0) g/dL ABG Oxyhemoglobin 18.7 % ABG Carboxyhemoglobin 0.8 (0.0-1.6) % ABG Methemoglobin 0.9 % VBG pH 7.386 (7.350-7.450) VBG pCO2 45.8 mm/Hg VBG pO2 17.2 mm/Hg VBG HCO3 26.9 mmol/L VBG Total CO2 25.0 mmol/L VBG O2 Saturation 19.0 VBG O2 Content 3.1 %vol VBG Base Excess 2.0 mm/L O2 Delivery Device Room air Sodium 143 (140-148) mmol/L Potassium 4.9 (3.6-5.2) mmol/L Chloride 104 (100-108) mmol/L Carbon Dioxide 26 (21-32) mmol/L Anion Gap 12.7 (5.0-14.0) mmol/L BUN 17 (7-18) mg/dL Creatinine 1.2 H (0.6-1.0) mg/dL Est Cr Clr Drug Dosing 31.21 mL/min Estimated GFR (MDRD) 43 L (>60) Glucose 93 (74-106) mg/dL POC Glucose (74-106) MG/DL Calcium 8.8 (8.5-10.1) mg/dL Total Bilirubin 0.2 (0.2-1.0) mg/dL AST 18 (15-37) U/L ALT 18 (12-78) U/L Alkaline Phosphatase 97 (46-116) U/L Troponin I (0.000-0.056) ng/mL C-Reactive Protein 0.16 (0.0-0.3) mg/dL Total Protein 7.3 (6.4-8.2) g/dL Albumin 3.4 (3.4-5.0) g/dL Globulin 3.9 H (2.3-3.5) g/dL Albumin/Globulin Ratio 0.9 L (1.2-2.2) Urine Color Yellow (YELLOW) Urine Appearance Turbid A (CLEAR) Urine pH 7.0 (5.0-8.0) Ur Specific [place] 1.020 (1.008-1.030) Urine Protein 30 H (NEGATIVE) mg/dL Urine Glucose (UA) Negative (NEGATIVE) mg/dL Urine Ketones Negative (NEGATIVE) mg/dL Urine Occult Blood Small H (NEGATIVE) Urine Nitrite Negative (NEGATIVE) Urine Bilirubin Negative (NEGATIVE) Urine Urobilinogen 0.2 (0.2-1.0) EU/dL Ur Leukocyte Esterase Large H (NEGATIVE) Urine RBC 10-20 H (0-5) Urine WBC Packed H (0-5) Ur Epithelial Cells Rare Amorphous Sediment Many Urine Bacteria Many Urine Mucus Not seen Meds: Medications Generic Name Dose Route Start Last Admin Trade Name Freq PRN Reason Stop Dose Admin Sodium Chloride 1,000 mls @ 0 mls/hr 04/03/20 18:30 04/03/20 19:11 Normal Saline IV 999 mls/hr ASDIRECTED [facility] Administration KVO Sodium Chloride 10 ml 04/03/20 17:35 04/03/20 18:07 Saline Flush FLUSH 10 ml ASDIRECTED PRN Administration Keep Vein Open Discontinued Medications Generic Name Dose Route Start Last Admin Trade Name Freq PRN Reason Stop Dose Admin Ceftriaxone Sodium 1 gm/ 50 mls @ 100 mls/hr 04/03/20 19:36 04/03/20 20:10 Sodium Chloride IV 04/03/20 20:05 100 mls/hr ONETIME ONE Administration Departure - Departure Time of Disposition: 21:00 Condition: Fair Sepsis Event Note (ED) - Focused Exam Vital Signs: Vital Signs Temp Pulse Resp BP Pulse Ox 04/03/20 20:32 60 170/61 H 99 04/03/20 19:41 62 168/67 H 04/03/20 18:01 36.8 C 63 14 172/80 H 99 04/03/20 17:35 36.8 C 63 14 172/80 H 99 - My Orders Last 24 Hours: My Active Orders 04/03/20 18:28 EKG 12 Lead [EK] Stat 04/03/20 18:29 Abdomen 1V Flat [CR] Stat Chest 1V Frontal [CR] Stat 04/03/20 18:30 Sodium Chloride 0.9% [Normal Saline] 1,000 ml IV ASDIRECTED 04/03/20 18:31 EKG Documentation Completion [RC] ASDIRECTED - Assessment/Plan Last 24 Hours: My Active Orders 04/03/20 18:28 EKG 12 Lead [EK] Stat 04/03/20 18:29 Abdomen 1V Flat [CR] Stat Chest 1V Frontal [CR] Stat 04/03/20 18:30 Sodium Chloride 0.9% [Normal Saline] 1,000 ml IV ASDIRECTED 04/03/20 18:31 EKG Documentation Completion [RC] ASDIRECTED
[2020-04-03] MEDS ORDERED: Sodium Chloride 0.9% 1,000 ML IV SCH ×2 (18:30→22:28)
[2020-04-03] MEDS ORDERED: cefTRIAXone 1 GM in Sodium Chloride 0.9% 50 ML IV ONE (19:36)
--- NOTE | 2020-04-03 21:35 | PCM.HP.2 ---
H&P History of Present Illness - General Date of Service: 04/03/20 Admit Problem/Dx: Admission Diagnosis/Problem Admission Diagnosis/Problem UTI, Urinary tract infectious disease Source of Information: Old Records, Provider, RN Notes Reviewed History Limitations: Reports: Altered Mental Status (Dementia and aphasia) - History of Present Illness Initial Comments - Free Text/Narative: Ms. Becerra is an 84-year-old woman who was admitted through the emergency department observation status because of urinary tract infection and associated weakness. 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 She is unable to provide a meaningful history concerning recent symptoms or review of systems. Apparently about a week ago she was seen in the clinic and found to have a urinary tract infection. She was treated with ciprofloxacin. She did well until the last 24 hours when she is experienced progressive weakness to the point that her was unable to care for her at home. She was brought into the emergency department for evaluation. Urinalysis shows evidence of urinary tract infection, for the most part other labs are unremarkable. She has been given IV fluids and a urine culture has been obtained. Initial antibiotic therapy started with ceftriaxone while in the emergency department. At the present time there is no evidence of active sepsis. Because of her profound weakness she is not safe for discharged home. - Related Data Allergies/Adverse Reactions: Allergies Allergy/AdvReac Type Severity Reaction Status Date / Time No Known Allergies Allergy Verified 10/08/16 19:33 Home Medications: Home Meds Aspirin [Halfprin] 162 mg PO DAILY 10/08/16 [History] Cholecalciferol (Vitamin D3) [Vitamin D3] 2,000 unit PO DAILY 10/08/16 [History] Docusate Sodium 100 mg PO DAILY 10/08/16 [History] Famotidine [Pepcid] 20 mg PO BID 10/08/16 [History] Folic Acid/Vit B Complex and C [Eql Super B Complex Tablet] 400 mcg PO DAILY 10/08/16 [History] Levothyroxine 75 mcg PO ACBREAKFAST 10/08/16 [History] Loratadine [Claritin] 10 mg PO DAILY 10/08/16 [History] Metoprolol Tartrate [Lopressor] 25 mg PO BID 10/08/16 [History] Polyethylene Glycol 3350 [MiraLAX] 17 gm PO DAILY 10/08/16 [History] Simvastatin [Zocor] 40 mg PO DAILY 10/08/16 [History] Venlafaxine [Effexor] 75 mg PO DAILY 10/08/16 [History] glipiZIDE [Glipizide ER] 10 mg PO DAILY 10/08/16 [History] metFORMIN [Glucophage] 1,000 mg PO BIDMEALS 10/08/16 [History] Fluticasone Propionate [Flonase] 2 spray NASBOTH DAILY #1 bottle 10/11/16 [Rx] Glycopyrrolate 1 mg PO ASDIRECTED PRN 04/03/20 [History] Insulin Aspart [NovoLOG] 8 units SUBCNJ TID 04/03/20 [History] Omeprazole 20 mg PO DAILY 04/03/20 [History] Ranitidine HCl [Ranitidine] 150 mg PO BID PRN 04/03/20 [History] amLODIPine [Norvasc] 5 mg PO DAILY 04/03/20 [History] Past Medical History HEENT History: Reports: Allergic Rhinitis, Impaired Vision, Other (See Below) Other HEENT History: problems swallowing Cardiovascular History: Reports: High Cholesterol, Hypertension, Stents Gastrointestinal History: Reports: GERD Genitourinary History: Reports: Urinary Incontinence [employer] History: Reports: Musculoskeletal History: Reports: Back Pain, Chronic Neurological History: Reports: CVA, TIA Psychiatric History: Reports: Dementia Endocrine/Metabolic History: Reports: Diabetes, Type II Hematologic History: Reports: Blood Transfusion(s) Oncologic (Cancer) History: Reports: Other (See Below) Other Oncologic History: many years ago - cant recall which kind - Past Surgical History Cardiovascular Surgical History: Reports: Coronary Artery Bypass, Coronary Artery Stent Female Surgical History: Reports: Hysterectomy Social & Family History - Tobacco Use Tobacco Use Status *Q: Unknown Ever Used Tobacco - Caffeine Use Caffeine Use: Reports: Soda H&P Review of Systems - Review of Systems: Review Of Systems: See Below General: Reports: ROS unobtainable (Dementia and expressive aphasia) Exam - Exam Exam: See Below - Vital Signs Vital Signs: Last Vital Signs Temp 98.2 F 04/03/20 18:01 Pulse 62 04/03/20 21:06 Resp 14 04/03/20 18:01 BP 189/67 H 04/03/20 21:06 Pulse Ox 99 04/03/20 21:06 Weight: 134 lb - Exam Quality Assessment: DVT Prophylaxis General: Alert, Cooperative, Mild Distress. No: Oriented HEENT: Conjunctiva Clear, Normal Nasal Septum, Posterior Pharynx Clear, Pupils Equal. No: Mucosa Moist & [place] Neck: Supple, Trachea Midline, +2 Carotid Pulse wo Bruit Lungs: Clear to Auscultation, Normal Respiratory Effort, Decreased Breath Sounds Cardiovascular: Regular Rate, Regular Rhythm, Normal S1, Normal S2. No: Systolic Murmur, Diastolic Murmur GI/Abdominal Exam: Soft, Non-Tender, No Organomegaly, No Distention Back Exam: Normal Inspection. No: CVA Tenderness (R), CVA Tenderness (L) Extremities: Non-Tender, No Pedal Edema Skin: Warm, Dry, Intact - Patient Data Lab Results Last 24 hrs: Laboratory Results - last 24 hr 04/03/20 04/03/20 04/03/20 Range/Units 17:38 18:02 18:02 WBC 9.2 (4.5-11.0) K/uL RBC 4.47 (3.30-5.50) M/uL Hgb 11.6 L (12.0-15.0) g/dL Hct 38.5 (36.0-48.0) % MCV 86 (80-98) fL MCH 26 L (27-31) pg MCHC 30 L (32-36) % Plt Count 260 (150-400) K/uL ABG Hemoglobin (12.0-16.0) g/dL ABG Oxyhemoglobin % ABG Carboxyhemoglobin (0.0-1.6) % ABG Methemoglobin % VBG pH (7.350-7.450) VBG pCO2 mm/Hg VBG pO2 mm/Hg VBG HCO3 mmol/L VBG Total CO2 mmol/L VBG O2 Saturation VBG O2 Content %vol VBG Base Excess mm/L O2 Delivery Device Sodium 142 (140-148) mmol/L Potassium 4.8 (3.6-5.2) mmol/L Chloride 104 (100-108) mmol/L Carbon Dioxide 26 (21-32) mmol/L Anion Gap 11.6 (5.0-14.0) mmol/L BUN 16 (7-18) mg/dL Creatinine 1.3 H (0.6-1.0) mg/dL Est Cr Clr Drug Dosing 28.81 mL/min Estimated GFR (MDRD) 39 L (>60) Glucose 101 (74-106) mg/dL POC Glucose 94 (74-106) MG/DL Calcium 9.5 D (8.5-10.1) mg/dL Total Bilirubin (0.2-1.0) mg/dL AST (15-37) U/L ALT (12-78) U/L Alkaline Phosphatase (46-116) U/L Troponin I < 0.017 (0.000-0.056) ng/mL C-Reactive Protein (0.0-0.3) mg/dL Total Protein (6.4-8.2) g/dL Albumin (3.4-5.0) g/dL Globulin (2.3-3.5) g/dL Albumin/Globulin Ratio (1.2-2.2) Urine Color (YELLOW) Urine Appearance (CLEAR) Urine pH (5.0-8.0) Ur Specific [place] (1.008-1.030) Urine Protein (NEGATIVE) mg/dL Urine Glucose (UA) (NEGATIVE) mg/dL Urine Ketones (NEGATIVE) mg/dL Urine Occult Blood (NEGATIVE) Urine Nitrite (NEGATIVE) Urine Bilirubin (NEGATIVE) Urine Urobilinogen (0.2-1.0) EU/dL Ur Leukocyte Esterase (NEGATIVE) Urine RBC (0-5) Urine WBC (0-5) Ur Epithelial Cells Amorphous Sediment Urine Bacteria Urine Mucus 04/03/20 04/03/20 04/03/20 Range/Units 18:05 18:05 18:51 WBC (4.5-11.0) K/uL RBC (3.30-5.50) M/uL Hgb (12.0-15.0) g/dL Hct (36.0-48.0) % MCV (80-98) fL MCH (27-31) pg MCHC (32-36) % Plt Count (150-400) K/uL ABG Hemoglobin 11.8 L (12.0-16.0) g/dL ABG Oxyhemoglobin 18.7 % ABG Carboxyhemoglobin 0.8 (0.0-1.6) % ABG Methemoglobin 0.9 % VBG pH 7.386 (7.350-7.450) VBG pCO2 45.8 mm/Hg VBG pO2 17.2 mm/Hg VBG HCO3 26.9 mmol/L VBG Total CO2 25.0 mmol/L VBG O2 Saturation 19.0 VBG O2 Content 3.1 %vol VBG Base Excess 2.0 mm/L O2 Delivery Device Room air Sodium 143 (140-148) mmol/L Potassium 4.9 (3.6-5.2) mmol/L Chloride 104 (100-108) mmol/L Carbon Dioxide 26 (21-32) mmol/L Anion Gap 12.7 (5.0-14.0) mmol/L BUN 17 (7-18) mg/dL Creatinine 1.2 H (0.6-1.0) mg/dL Est Cr Clr Drug Dosing 31.21 mL/min Estimated GFR (MDRD) 43 L (>60) Glucose 93 (74-106) mg/dL POC Glucose (74-106) MG/DL Calcium 8.8 (8.5-10.1) mg/dL Total Bilirubin 0.2 (0.2-1.0) mg/dL AST 18 (15-37) U/L ALT 18 (12-78) U/L Alkaline Phosphatase 97 (46-116) U/L Troponin I (0.000-0.056) ng/mL C-Reactive Protein 0.16 (0.0-0.3) mg/dL Total Protein 7.3 (6.4-8.2) g/dL Albumin 3.4 (3.4-5.0) g/dL Globulin 3.9 H (2.3-3.5) g/dL Albumin/Globulin Ratio 0.9 L (1.2-2.2) Urine Color Yellow (YELLOW) Urine Appearance Turbid A (CLEAR) Urine pH 7.0 (5.0-8.0) Ur Specific [place] 1.020 (1.008-1.030) Urine Protein 30 H (NEGATIVE) mg/dL Urine Glucose (UA) Negative (NEGATIVE) mg/dL Urine Ketones Negative (NEGATIVE) mg/dL Urine Occult Blood Small H (NEGATIVE) Urine Nitrite Negative (NEGATIVE) Urine Bilirubin Negative (NEGATIVE) Urine Urobilinogen 0.2 (0.2-1.0) EU/dL Ur Leukocyte Esterase Large H (NEGATIVE) Urine RBC 10-20 H (0-5) Urine WBC Packed H (0-5) Ur Epithelial Cells Rare Amorphous Sediment Many Urine Bacteria Many Urine Mucus Not seen Result Diagrams: 04/03/20 18:02 04/03/20 18:05 Sepsis Event Note - Evaluation Sepsis Screening Result: No Definite Risk - Focused Exam Vital Signs: Vital Signs Temp Pulse Resp BP Pulse Ox 04/03/20 21:06 62 189/67 H 99 04/03/20 20:32 60 170/61 H 99 04/03/20 19:41 62 168/67 H 04/03/20 18:01 98.2 F 63 14 172/80 H 99 04/03/20 17:35 98.2 F 63 14 172/80 H 99 *Q Meaningful Use (ADM) - VTE Risk Assess *Q Each Risk Factor Represents 1 Point: None Total Score 1 Point Risk Factors: 0 Each Risk Factor Represents 2 Points: None Total Score 2 Point Risk Factors: 0 Each Risk Factor Represents 3 Points: Age 75 Years or Greater Total Score 3 Point Risk Factors: 3 Each Risk Factor Represents 5 Points: None Total Score 5 Point Risk Factors: 0 Venous Thromboembolism Risk Factor Score *Q: 3 Problem List Initiated/Reviewed/Updated: Yes Orders Last 24hrs: Active Orders 24 hr Category Date Time Status Patient Status Manage Transfer [TRANSFER] Routine ADT 04/03/20 21:25 Ordered EKG Documentation Completion [RC] ASDIRECTED Care 04/03/20 18:31 Active Abdomen 1V Flat [CR] Stat Exams 04/03/20 18:29 Taken Chest 1V Frontal [CR] Stat Exams 04/03/20 18:29 Taken Sodium Chloride 0.9% [Normal Saline] 1,000 ml Med 04/03/20 18:30 Active IV ASDIRECTED Sodium Chloride 0.9% [Saline Flush] Med 04/03/20 17:35 Active 10 ml FLUSH ASDIRECTED PRN Saline Lock Insert [OM.PC] Routine Oth 04/03/20 17:35 Ordered Resuscitation Status Routine Resus Stat 04/03/20 21:30 Ordered EKG 12 Lead [EK] Stat Ther 04/03/20 18:28 Ordered Medication Orders Sodium Chloride (Normal Saline) 1,000 mls @ 0 mls/hr IV ASDIRECTED FRANCIE Last Admin: 04/03/20 19:11 Dose: 999 mls/hr Documented by: MARCOS Sodium Chloride (Saline Flush) 10 ml FLUSH ASDIRECTED PRN PRN Reason: Keep Vein Open Last Admin: 04/03/20 18:07 Dose: 10 ml Documented by: [id number] Assessment/Plan Comment:: ASSESSMENT AND PLAN URINARY TRACT INFECTION-history of recent infection treated as an outpatient with ciprofloxacin. Progressive weakness over the past 24 hours. -Urine culture pending -Ceftriaxone 1 g IV every 24 hours pending culture results GENERALIZED WEAKNESS-likely secondary to urinary tract infection -IV fluids overnight normal saline 75 cc/h -Treat urinary tract infection -Physical therapy consult TYPE 2 DIABETES MELLITUS -Hold glipizide and scheduled insulin -4 times daily glucometers -Continue Metformin -Moderate dose sliding scale Humalog CHRONIC KIDNEY DISEASE STAGE III -Closely monitor urine output and renal function MULTI-INFARCT DEMENTIA MAINTENANCE ISSUES -DVT prophylaxis; Lovenox 40 mg subcu daily -GI prophylaxis; continue outpatient PPI therapy -Pulliam catheter; not indicated -Nutrition; mechanical soft diet, nectar thickened liquids -Nicotine dependence; not required CODE STATUS-FULL CODE ADMISSION STATUS-this patient will be admitted to observation status, expect no more than a one night hospital stay for evaluation and management of problems as outlined above. DISPOSITION-anticipate discharge to home after the hospital stay. PRIMARY CARE PROVIDER-Dr. Martinez - Mortality Measure Prognosis:: Good
[2020-04-03] MEDS ORDERED: Acetaminophen 325 MG Tab PO PRN (22:28)
[2020-04-03] MEDS ORDERED: Ondansetron 4 MG/2 ML SDV IV PRN (22:28)
[2020-04-03] MEDS ORDERED: Glucose Gel 15 GM in 37.5 GM Tube PO PRN (22:28)
[2020-04-03] MEDS ORDERED: 50% Dextrose in Water 50 ML Syringe IV PRN (22:28)
[2020-04-03] MEDS: Enoxaparin 40 MG/0.4 ML Syringe SUBCUT SCH (23:11)
[2020-04-04] MEDS ORDERED: Non-Formulary Medication 1 Each (Omeprazole [Omeprazole] 20 MG) PO SCH (09:00)
[2020-04-04] MEDS ORDERED: Venlafaxine 75 MG Tab PO SCH (09:00)
--- NOTE | 2020-04-04 09:02 | CR ---
Abdomen 1V Flat CLINICAL HISTORY: Emesis FINDINGS: Small intestinal configuration is nonacute. There is moderate retained stool throughout the colon. No definite urinary calculi are identified. Subtle calcifications could be obscured by bowel content. IMPRESSION: Nonspecific study abdomen Moderate retained stool
--- NOTE | 2020-04-04 09:05 | CR ---
CHEST: Portable 04/03/2020 at 1853 CLINICAL HISTORY:Emesis, pain COMPARISON:2017 FINDINGS: Heart size and pulmonary vascularity are normal. There has been previous sternotomy. There are atherosclerotic changes in the aorta.. No infiltrates are seen. There are no pleural effusions. There are old right rib fractures Impression: No acute pulmonary process.
[2020-04-04] MEDS: Levothyroxine 25 MCG Tab PO SCH (09:49)
[2020-04-04] MEDS: metFORMIN 500 MG Tab PO SCH ×2 (09:50→16:54)
[2020-04-04] MEDS: Venlafaxine 75 MG Cap.ER PO SCH (09:50)
[2020-04-04] MEDS: Pantoprazole 40 MG Tab.CR PO SCH (09:50)
[2020-04-04] MEDS: Polyethylene Glycol 3350 Powder 17 GM Packet PO SCH (09:51)
[2020-04-04] MEDS: Metoprolol Tartrate 25 MG Tab PO SCH ×2 (09:51→20:30)
[2020-04-04] MEDS: Aspirin 81 MG Tab.EC PO SCH (09:51)
[2020-04-04] MEDS: amLODIPine 5 MG Tab PO SCH (09:51)
[2020-04-04] MEDS: Insulin Lispro 100 Unit/ML 3 ML KwikPen SUBCUT SCH ×4 (09:59→23:09)
[2020-04-04] MEDS: Docusate Sodium 100 MG Cap PO SCH (09:59)
[2020-04-04] MEDS: Fluticasone Propionate Nasal Spray 16 GM Bottle NASBOTH SCH (09:59)
[2020-04-04] MEDS: Loratadine 10 MG Tab PO SCH (09:59)
--- NOTE | 2020-04-04 12:13 | PCM.PN ---
- General Info Date of Service: 04/04/20 Subjective Update: Ms. Becerra has improved from admission, less lethargic and more interactive. Vital signs have remained stable and she has been afebrile. Overall strength improved with hydration and antibiotic therapy. She is unable to provide a meaningful history concerning recent symptoms or review of systems secondary to dementia and aphasia. - Patient Data Vitals - Most Recent: Last Vital Signs Temp 96.0 F L 04/04/20 11:38 Pulse 62 04/04/20 11:38 Resp 16 04/04/20 11:38 BP 151/47 H 04/04/20 11:38 Pulse Ox 94 L 04/04/20 11:38 Weight - Most Recent: 132 lb 7.965 oz I&O - Last 24 Hours: Intake & Output 04/03/20 04/04/20 04/04/20 22:59 06:59 14:59 Intake Total 500 Balance 500 Lab Results Last 24 Hours: Laboratory Results - last 24 hr 04/03/20 04/03/20 04/03/20 Range/Units 17:38 18:02 18:02 WBC 9.2 (4.5-11.0) K/uL RBC 4.47 (3.30-5.50) M/uL Hgb 11.6 L (12.0-15.0) g/dL Hct 38.5 (36.0-48.0) % MCV 86 (80-98) fL MCH 26 L (27-31) pg MCHC 30 L (32-36) % Plt Count 260 (150-400) K/uL Neut % (Auto) (36-66) % Lymph % (Auto) (24-44) % [place] % (Auto) (2-6) % Eos % (Auto) (2-4) % Baso % (Auto) (0-1) % ABG Hemoglobin (12.0-16.0) g/dL ABG Oxyhemoglobin % ABG Carboxyhemoglobin (0.0-1.6) % ABG Methemoglobin % VBG pH (7.350-7.450) VBG pCO2 mm/Hg VBG pO2 mm/Hg VBG HCO3 mmol/L VBG Total CO2 mmol/L VBG O2 Saturation VBG O2 Content %vol VBG Base Excess mm/L O2 Delivery Device Sodium 142 (140-148) mmol/L Potassium 4.8 (3.6-5.2) mmol/L Chloride 104 (100-108) mmol/L Carbon Dioxide 26 (21-32) mmol/L Anion Gap 11.6 (5.0-14.0) mmol/L BUN 16 (7-18) mg/dL Creatinine 1.3 H (0.6-1.0) mg/dL Est Cr Clr Drug Dosing 28.81 mL/min Estimated GFR (MDRD) 39 L (>60) Glucose 101 (74-106) mg/dL POC Glucose 94 (74-106) MG/DL Calcium 9.5 D (8.5-10.1) mg/dL Total Bilirubin (0.2-1.0) mg/dL AST (15-37) U/L ALT (12-78) U/L Alkaline Phosphatase (46-116) U/L Troponin I < 0.017 (0.000-0.056) ng/mL C-Reactive Protein (0.0-0.3) mg/dL Total Protein (6.4-8.2) g/dL Albumin (3.4-5.0) g/dL Globulin (2.3-3.5) g/dL Albumin/Globulin Ratio (1.2-2.2) Urine Color (YELLOW) Urine Appearance (CLEAR) Urine pH (5.0-8.0) Ur Specific [place] (1.008-1.030) Urine Protein (NEGATIVE) mg/dL Urine Glucose (UA) (NEGATIVE) mg/dL Urine Ketones (NEGATIVE) mg/dL Urine Occult Blood (NEGATIVE) Urine Nitrite (NEGATIVE) Urine Bilirubin (NEGATIVE) Urine Urobilinogen (0.2-1.0) EU/dL Ur Leukocyte Esterase (NEGATIVE) Urine RBC (0-5) Urine WBC (0-5) Ur Epithelial Cells Amorphous Sediment Urine Bacteria Urine Mucus 04/03/20 04/03/20 04/03/20 Range/Units 18:05 18:05 18:51 WBC (4.5-11.0) K/uL RBC (3.30-5.50) M/uL Hgb (12.0-15.0) g/dL Hct (36.0-48.0) % MCV (80-98) fL MCH (27-31) pg MCHC (32-36) % Plt Count (150-400) K/uL Neut % (Auto) (36-66) % Lymph % (Auto) (24-44) % [place] % (Auto) (2-6) % Eos % (Auto) (2-4) % Baso % (Auto) (0-1) % ABG Hemoglobin 11.8 L (12.0-16.0) g/dL ABG Oxyhemoglobin 18.7 % ABG Carboxyhemoglobin 0.8 (0.0-1.6) % ABG Methemoglobin 0.9 % VBG pH 7.386 (7.350-7.450) VBG pCO2 45.8 mm/Hg VBG pO2 17.2 mm/Hg VBG HCO3 26.9 mmol/L VBG Total CO2 25.0 mmol/L VBG O2 Saturation 19.0 VBG O2 Content 3.1 %vol VBG Base Excess 2.0 mm/L O2 Delivery Device Room air Sodium 143 (140-148) mmol/L Potassium 4.9 (3.6-5.2) mmol/L Chloride 104 (100-108) mmol/L Carbon Dioxide 26 (21-32) mmol/L Anion Gap 12.7 (5.0-14.0) mmol/L BUN 17 (7-18) mg/dL Creatinine 1.2 H (0.6-1.0) mg/dL Est Cr Clr Drug Dosing 31.21 mL/min Estimated GFR (MDRD) 43 L (>60) Glucose 93 (74-106) mg/dL POC Glucose (74-106) MG/DL Calcium 8.8 (8.5-10.1) mg/dL Total Bilirubin 0.2 (0.2-1.0) mg/dL AST 18 (15-37) U/L ALT 18 (12-78) U/L Alkaline Phosphatase 97 (46-116) U/L Troponin I (0.000-0.056) ng/mL C-Reactive Protein 0.16 (0.0-0.3) mg/dL Total Protein 7.3 (6.4-8.2) g/dL Albumin 3.4 (3.4-5.0) g/dL Globulin 3.9 H (2.3-3.5) g/dL Albumin/Globulin Ratio 0.9 L (1.2-2.2) Urine Color Yellow (YELLOW) Urine Appearance Turbid A (CLEAR) Urine pH 7.0 (5.0-8.0) Ur Specific [place] 1.020 (1.008-1.030) Urine Protein 30 H (NEGATIVE) mg/dL Urine Glucose (UA) Negative (NEGATIVE) mg/dL Urine Ketones Negative (NEGATIVE) mg/dL Urine Occult Blood Small H (NEGATIVE) Urine Nitrite Negative (NEGATIVE) Urine Bilirubin Negative (NEGATIVE) Urine Urobilinogen 0.2 (0.2-1.0) EU/dL Ur Leukocyte Esterase Large H (NEGATIVE) Urine RBC 10-20 H (0-5) Urine WBC Packed H (0-5) Ur Epithelial Cells Rare Amorphous Sediment Many Urine Bacteria Many Urine Mucus Not seen 04/04/20 04/04/20 04/04/20 Range/Units 05:30 05:30 07:30 WBC 8.1 (4.5-11.0) K/uL RBC 3.75 (3.30-5.50) M/uL Hgb 10.3 L (12.0-15.0) g/dL Hct 32.6 L (36.0-48.0) % MCV 87 (80-98) fL MCH 28 (27-31) pg MCHC 32 (32-36) % Plt Count 196 (150-400) K/uL Neut % (Auto) 45 (36-66) % Lymph % (Auto) 39 (24-44) % [place] % (Auto) 9 H (2-6) % Eos % (Auto) 7 H (2-4) % Baso % (Auto) 0 (0-1) % ABG Hemoglobin (12.0-16.0) g/dL ABG Oxyhemoglobin % ABG Carboxyhemoglobin (0.0-1.6) % ABG Methemoglobin % VBG pH (7.350-7.450) VBG pCO2 mm/Hg VBG pO2 mm/Hg VBG HCO3 mmol/L VBG Total CO2 mmol/L VBG O2 Saturation VBG O2 Content %vol VBG Base Excess mm/L O2 Delivery Device Sodium 144 (140-148) mmol/L Potassium 4.1 (3.6-5.2) mmol/L Chloride 108 (100-108) mmol/L Carbon Dioxide 23 (21-32) mmol/L Anion Gap 12.9 (5.0-14.0) mmol/L BUN 13 (7-18) mg/dL Creatinine 1.2 H (0.6-1.0) mg/dL Est Cr Clr Drug Dosing 31.87 mL/min Estimated GFR (MDRD) 43 L (>60) Glucose 83 (74-106) mg/dL POC Glucose 83 (74-106) MG/DL Calcium 8.3 L (8.5-10.1) mg/dL Total Bilirubin (0.2-1.0) mg/dL AST (15-37) U/L ALT (12-78) U/L Alkaline Phosphatase (46-116) U/L Troponin I (0.000-0.056) ng/mL C-Reactive Protein (0.0-0.3) mg/dL Total Protein (6.4-8.2) g/dL Albumin (3.4-5.0) g/dL Globulin (2.3-3.5) g/dL Albumin/Globulin Ratio (1.2-2.2) Urine Color (YELLOW) Urine Appearance (CLEAR) Urine pH (5.0-8.0) Ur Specific [place] (1.008-1.030) Urine Protein (NEGATIVE) mg/dL Urine Glucose (UA) (NEGATIVE) mg/dL Urine Ketones (NEGATIVE) mg/dL Urine Occult Blood (NEGATIVE) Urine Nitrite (NEGATIVE) Urine Bilirubin (NEGATIVE) Urine Urobilinogen (0.2-1.0) EU/dL Ur Leukocyte Esterase (NEGATIVE) Urine RBC (0-5) Urine WBC (0-5) Ur Epithelial Cells Amorphous Sediment Urine Bacteria Urine Mucus 04/04/20 Range/Units 11:30 WBC (4.5-11.0) K/uL RBC (3.30-5.50) M/uL Hgb (12.0-15.0) g/dL Hct (36.0-48.0) % MCV (80-98) fL MCH (27-31) pg MCHC (32-36) % Plt Count (150-400) K/uL Neut % (Auto) (36-66) % Lymph % (Auto) (24-44) % [place] % (Auto) (2-6) % Eos % (Auto) (2-4) % Baso % (Auto) (0-1) % ABG Hemoglobin (12.0-16.0) g/dL ABG Oxyhemoglobin % ABG Carboxyhemoglobin (0.0-1.6) % ABG Methemoglobin % VBG pH (7.350-7.450) VBG pCO2 mm/Hg VBG pO2 mm/Hg VBG HCO3 mmol/L VBG Total CO2 mmol/L VBG O2 Saturation VBG O2 Content %vol VBG Base Excess mm/L O2 Delivery Device Sodium (140-148) mmol/L Potassium (3.6-5.2) mmol/L Chloride (100-108) mmol/L Carbon Dioxide (21-32) mmol/L Anion Gap (5.0-14.0) mmol/L BUN (7-18) mg/dL Creatinine (0.6-1.0) mg/dL Est Cr Clr Drug Dosing mL/min Estimated GFR (MDRD) (>60) Glucose (74-106) mg/dL POC Glucose 290 H (74-106) MG/DL Calcium (8.5-10.1) mg/dL Total Bilirubin (0.2-1.0) mg/dL AST (15-37) U/L ALT (12-78) U/L Alkaline Phosphatase (46-116) U/L Troponin I (0.000-0.056) ng/mL C-Reactive Protein (0.0-0.3) mg/dL Total Protein (6.4-8.2) g/dL Albumin (3.4-5.0) g/dL Globulin (2.3-3.5) g/dL Albumin/Globulin Ratio (1.2-2.2) Urine Color (YELLOW) Urine Appearance (CLEAR) Urine pH (5.0-8.0) Ur Specific [place] (1.008-1.030) Urine Protein (NEGATIVE) mg/dL Urine Glucose (UA) (NEGATIVE) mg/dL Urine Ketones (NEGATIVE) mg/dL Urine Occult Blood (NEGATIVE) Urine Nitrite (NEGATIVE) Urine Bilirubin (NEGATIVE) Urine Urobilinogen (0.2-1.0) EU/dL Ur Leukocyte Esterase (NEGATIVE) Urine RBC (0-5) Urine WBC (0-5) Ur Epithelial Cells Amorphous Sediment Urine Bacteria Urine Mucus Med Orders - Current: Current Medications Acetaminophen (Tylenol) 650 mg PO Q4H PRN PRN Reason: Pain (Mild 1-3)/fever Amlodipine Besylate (Norvasc) 5 mg PO DAILY [facility] Last Admin: 04/04/20 09:51 Dose: 5 mg Documented by: Aspirin (Halfprin) 162 mg PO DAILY [facility] Last Admin: 04/04/20 09:51 Dose: 162 mg Documented by: Dextrose (Glutose 15) 15 gm PO ONETIME PRN PRN Reason: Hypoglycemia Dextrose/Water (Dextrose 50% In Water) 50 ml IV ONETIME PRN PRN Reason: Hypoglycemia Docusate Sodium (Colace) 100 mg PO DAILY [facility] Last Admin: 04/04/20 09:59 Dose: Not Given Documented by: Enoxaparin Sodium (Lovenox) 40 mg SUBCUT BEDTIME [facility] Last Admin: 04/03/20 23:11 Dose: 40 mg Documented by: Fluticasone Propionate (Flonase) 0 gm NASBOTH DAILY [facility] Last Admin: 04/04/20 09:59 Dose: Not Given Documented by: Ceftriaxone Sodium 1 gm/ (Sodium Chloride) 50 mls @ 100 mls/hr IV Q24H [facility] Insulin Human Lispro (Humalog) 0 unit SUBCUT QIDACANDBED [facility]; Protocol Last Admin: 04/04/20 09:59 Dose: Not Given Documented by: Levothyroxine Sodium (Levothyroxine) 75 mcg PO ACBREAKFAST [facility] Last Admin: 04/04/20 09:49 Dose: 75 mcg Documented by: Loratadine (Claritin) 10 mg PO DAILY [facility] Last Admin: 04/04/20 09:59 Dose: Not Given Documented by: Metformin HCl (Glucophage) 1,000 mg PO BIDMEALS [facility] Last Admin: 04/04/20 09:50 Dose: 1,000 mg Documented by: Metoprolol Tartrate (Lopressor) 25 mg PO BID [facility] Last Admin: 04/04/20 09:51 Dose: 25 mg Documented by: Ondansetron HCl (Zofran) 4 mg IV Q4H PRN PRN Reason: Nausea/Vomiting Pantoprazole Sodium (Protonix) 40 mg PO ACBREAKFAST [facility] Last Admin: 04/04/20 09:50 Dose: 40 mg Documented by: Polyethylene Glycol (Miralax) 17 gm PO DAILY [facility] Last Admin: 04/04/20 09:51 Dose: 17 gm Documented by: Senna/Docusate Sodium (Senna Plus) 1 tab PO BID PRN PRN Reason: Constipation Simvastatin (Zocor) 40 mg PO BEDTIME [facility] Sodium Chloride (Saline Flush) 10 ml FLUSH ASDIRECTED PRN PRN Reason: Keep Vein Open Venlafaxine HCl (Effexor Xr) 75 mg PO DAILY [facility] Last Admin: 04/04/20 09:50 Dose: 75 mg Documented by: Discontinued Medications Sodium Chloride (Normal Saline) 1,000 mls @ 0 mls/hr IV ASDIRECTED [facility] Last Admin: 04/03/20 19:11 Dose: 999 mls/hr Documented by: Ceftriaxone Sodium 1 gm/ (Sodium Chloride) 50 mls @ 100 mls/hr IV ONETIME ONE Stop: 04/03/20 20:05 Last Admin: 04/03/20 20:10 Dose: 100 mls/hr Documented by: Sodium Chloride (Normal Saline) 1,000 mls @ 75 mls/hr IV ASDIRECTED [facility] Last Admin: 04/03/20 22:48 Dose: 75 mls/hr Documented by: Sodium Chloride (Saline Flush) 10 ml FLUSH ASDIRECTED PRN PRN Reason: Keep Vein Open Last Admin: 04/03/20 18:07 Dose: 10 ml Documented by: - Exam Quality Assessment: DVT Prophylaxis General: Alert, Cooperative, No Acute Distress. No: Oriented Lungs: Clear to Auscultation, Normal Respiratory Effort Cardiovascular: Regular Rate, Regular Rhythm, No Murmurs GI/Abdominal Exam: Soft, Non-Tender, No Organomegaly, No Distention Sepsis Event Note - Evaluation Sepsis Screening Result: No Definite Risk - Focused Exam Vital Signs: Vital Signs Temp Pulse Pulse Resp BP BP Pulse Ox 04/04/20 11:38 96.0 F L 62 16 151/47 H 94 L 04/04/20 09:51 77 133/47 L 04/04/20 07:09 97.3 F 77 16 133/47 L 94 L 04/04/20 03:00 97.2 F 80 16 152/54 H 98 - Problem List Review Problem List Initiated/Reviewed/Updated: Yes - My Orders Last 24 Hours: My Active Orders 04/03/20 Dinner Mechanical Soft Diet [DIET] 04/03/20 21:30 Resuscitation Status Routine 04/03/20 22:28 Acetaminophen [TylenoL] 650 mg PO Q4H PRN Dextrose 50% in Water 50 ml IV ONETIME PRN Dextrose [Glutose 15] 15 gm PO ONETIME PRN Docusate Sodium/Sennosides [Senna Plus] 1 tab PO BID PRN Enoxaparin [Lovenox] 40 mg SUBCUT BEDTIME Ondansetron [Zofran] 4 mg IV Q4H PRN Sodium Chloride 0.9% [Saline Flush] 10 ml FLUSH ASDIRECTED PRN 04/03/20 22:28 Patient Status [ADT] Routine Ambulate [RC] QID Diabetes Education [RC] Click to Edit Height and Weight [RC] 0500 Intake and Output [RC] QSHIFT Notify Provider Vital Signs [RC] ASDIRECTED Notify Provider [RC] PRN Oxygen Therapy [RC] PRN Peripheral IV Care [RC] Q12H Up With Assistance [RC] ASDIRECTED Up to Chair [RC] QID VTE/DVT Education [RC] Per Unit Routine Vital Signs [RC] Q4H Peripheral IV Insertion Adult [OM.PC] Routine 04/04/20 07:00 Insulin Lispro [HumaLOG] See Protocol SUBCUT QIDACANDBED 04/04/20 07:30 Levothyroxine 75 mcg PO ACBREAKFAST Pantoprazole [ProTONIX] 40 mg PO ACBREAKFAST 04/04/20 07:56 Consult to Physical Therapy [PT Evaluation and Treatment] [CONS] Routine 04/04/20 08:00 metFORMIN [Glucophage] 1,000 mg PO BIDMEALS 04/04/20 09:00 Aspirin [Halfprin] 162 mg PO DAILY Docusate Sodium [Colace] 100 mg PO DAILY Fluticasone Propionate [Flonase] 0 gm NASBOTH DAILY Loratadine [Claritin] 10 mg PO DAILY Metoprolol Tartrate [Lopressor] 25 mg PO BID Venlafaxine [Effexor XR] 75 mg PO DAILY amLODIPine [Norvasc] 5 mg PO DAILY polyethylene glycoL 3350 [MiraLAX] 17 gm PO DAILY 04/04/20 12:11 Convert IV to Saline Lock [OM.PC] Routine 04/04/20 16:30 GLUCOSE POC LAB TO COLLECT JPM [POC] QIDACANDBED 04/04/20 21:00 GLUCOSE POC LAB TO COLLECT JPM [POC] QIDACANDBED Simvastatin [Zocor] 40 mg PO BEDTIME cefTRIAXone [Rocephin] 1 gm Sodium Chloride 0.9% [Normal Saline] 50 ml IV Q24H 04/05/20 05:00 BASIC METABOLIC PANEL,BMP [CHEM] Timed 04/05/20 07:30 GLUCOSE POC LAB TO COLLECT JPM [POC] QIDACANDBED 04/05/20 11:30 GLUCOSE POC LAB TO COLLECT JPM [POC] QIDACANDBED 04/05/20 16:30 GLUCOSE POC LAB TO COLLECT JPM [POC] QIDACANDBED 04/05/20 21:00 GLUCOSE POC LAB TO COLLECT JPM [POC] QIDACANDBED 04/06/20 07:30 GLUCOSE POC LAB TO COLLECT JPM [POC] QIDACANDBED 04/06/20 11:30 GLUCOSE POC LAB TO COLLECT JPM [POC] QIDACANDBED 04/06/20 16:30 GLUCOSE POC LAB TO COLLECT JPM [POC] QIDACANDBED 04/06/20 21:00 GLUCOSE POC LAB TO COLLECT JPM [POC] QIDACANDBED 04/07/20 07:30 GLUCOSE POC LAB TO COLLECT JPM [POC] QIDACANDBED 04/07/20 11:30 GLUCOSE POC LAB TO COLLECT JPM [POC] QIDACANDBED 04/07/20 16:30 GLUCOSE POC LAB TO COLLECT JPM [POC] QIDACANDBED 04/07/20 21:00 GLUCOSE POC LAB TO COLLECT JPM [POC] QIDACANDBED 04/08/20 07:30 GLUCOSE POC LAB TO COLLECT JPM [POC] QIDACANDBED 04/08/20 11:30 GLUCOSE POC LAB TO COLLECT JPM [POC] QIDACANDBED 04/08/20 16:30 GLUCOSE POC LAB TO COLLECT JPM [POC] QIDACANDBED 04/08/20 21:00 GLUCOSE POC LAB TO COLLECT JPM [POC] QIDACANDBED - Plan Plan:: ASSESSMENT AND PLAN URINARY TRACT INFECTION-history of recent infection treated as an outpatient with ciprofloxacin. Progressive weakness over the past 24 hours. -Urine culture pending -Ceftriaxone 1 g IV every 24 hours pending culture results GENERALIZED WEAKNESS-likely secondary to urinary tract infection. Improved from admission, more alert and stronger -Saline lock IV -Treat urinary tract infection -Physical therapy consult TYPE 2 DIABETES MELLITUS -Hold glipizide and scheduled insulin -4 times daily glucometers -Continue Metformin -Moderate dose sliding scale Humalog CHRONIC KIDNEY DISEASE STAGE III -Closely monitor urine output and renal function MULTI-INFARCT DEMENTIA MAINTENANCE ISSUES -DVT prophylaxis; Lovenox 40 mg subcu daily -GI prophylaxis; continue outpatient PPI therapy -Pulliam catheter; not indicated -Nutrition; mechanical soft diet, nectar thickened liquids -Nicotine dependence; not required CODE STATUS-FULL CODE ADMISSION STATUS-this patient will be admitted to observation status, expect no more than a one night hospital stay for evaluation and management of problems as outlined above. DISPOSITION-anticipate discharge to home after the hospital stay. PRIMARY CARE PROVIDER-Dr. Martinez
[2020-04-04] MEDS: Enoxaparin 40 MG/0.4 ML Syringe SUBCUT SCH (20:29)
[2020-04-04] MEDS ORDERED: Simvastatin 20 MG Tab PO SCH (21:00)
[2020-04-04] MEDS ORDERED: cefTRIAXone 1 GM in Sodium Chloride 0.9% 50 ML IV SCH (21:00)
[2020-04-05] MEDS: Levothyroxine 25 MCG Tab PO SCH (07:53)
[2020-04-05] MEDS: Pantoprazole 40 MG Tab.CR PO SCH (07:54)
[2020-04-05] MEDS: Insulin Lispro 100 Unit/ML 3 ML KwikPen SUBCUT SCH (07:56)
--- NOTE | 2020-04-05 09:23 | PCM.DCSUM1 ---
Discharge Summary - Hospital Course Brief History: Ms. Becerra is an 84-year-old woman who was admitted to observation status through the emergency department with urinary tract infection and weakness. - Discharge Data Discharge Date: 04/05/20 Discharge Disposition: Home, W Home Health Agency 06 Condition: Fair - Referral to Home Health Date of Face to Face Encounter: 04/05/20 Reason for Homebound Status: Weakness and dementia Primary Care Physician: PCP None Skilled Need: Nursing care, health aide, PT OT - Patient Summary/Data Consults: Consultations 04/04/20 07:56 Consult to Physical Therapy [PT Evaluation and Treatment] [CONS] Routine Please Evaluate and Treat. PT Reason for Consult: Strengthening This query below is only for informational purposes and is not editable. Admission Diagnosis/Problem: UTI, Urinary tract infectious disease Hospital Course: Ms. Becerra is an 84-year-old woman who was admitted through the emergency department observation status because of urinary tract infection and associated weakness. 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 She is unable to provide a meaningful history concerning recent symptoms or review of systems. Apparently about a week ago she was seen in the clinic and found to have a urinary tract infection. She was treated with ciprofloxacin. She did well until the last 24 hours when she is experienced progressive weakness to the point that her was unable to care for her at home. She was brought into the emergency department for evaluation. Urinalysis shows evidence of urinary tract infection, for the most part other labs are unremarkable. She has been given IV fluids and a urine culture has been obtained. Initial antibiotic therapy started with ceftriaxone while in the emergency department. At the present time there is no evidence of active sepsis. Because of her profound weakness she is not safe for discharged home. She was given IV fluids through the first night for hydration and then these were discontinued. Diabetes was managed with 4 times daily glucometers and sliding scale Humalog during hospitalization. Ceftriaxone was continued through the hospital stay. She was seen and evaluated by physical therapy during hospitalization and by the time of discharge she had regained strength to the point that she was back to her baseline. Home care services will be arranged for her after discharge including physical therapy and Occupational Therapy. She will be discharged home on oral antibiotic therapy with cephalexin 500 mg 4 times daily for an additional 5 days. Activity will be as tolerated and she will remain on a diabetic diet. - Patient Instructions Diet: Diabetic Diet Activity: As Tolerated Other/Special Instructions: Please arrange for home care services after discharge. Please schedule follow-up appointment with primary care provider within 1 week. - Discharge Plan *PRESCRIPTION DRUG MONITORING PROGRAM REVIEWED*: Not Applicable *COPY OF PRESCRIPTION DRUG MONITORING REPORT IN PATIENT ISREAL: Not Applicable Prescriptions/Med Rec: cephALEXin [Cephalexin] 500 mg PO QID #20 capsule Home Medications: Home Meds Aspirin [Halfprin] 162 mg PO DAILY 10/08/16 [History] Cholecalciferol (Vitamin D3) [Vitamin D3] 2,000 unit PO DAILY 10/08/16 [History] Docusate Sodium 100 mg PO DAILY 10/08/16 [History] Famotidine [Pepcid] 20 mg PO BID 10/08/16 [History] Folic Acid/Vit B Complex and C [Eql Super B Complex Tablet] 400 mcg PO DAILY 10/08/16 [History] Levothyroxine 75 mcg PO ACBREAKFAST 10/08/16 [History] Loratadine [Claritin] 10 mg PO DAILY 10/08/16 [History] Metoprolol Tartrate [Lopressor] 25 mg PO BID 10/08/16 [History] Polyethylene Glycol 3350 [MiraLAX] 17 gm PO DAILY 10/08/16 [History] Simvastatin [Zocor] 40 mg PO DAILY 10/08/16 [History] glipiZIDE [Glipizide ER] 10 mg PO DAILY 10/08/16 [History] metFORMIN [Glucophage] 1,000 mg PO BIDMEALS 10/08/16 [History] Fluticasone Propionate [Flonase] 2 spray NASBOTH DAILY #1 bottle 10/11/16 [Rx] Glycopyrrolate 1 mg PO ASDIRECTED PRN 04/03/20 [History] Insulin Aspart [NovoLOG] 8 units SUBCNJ TID 04/03/20 [History] Omeprazole 20 mg PO DAILY 04/03/20 [History] Ranitidine HCl [Ranitidine] 150 mg PO BID PRN 04/03/20 [History] amLODIPine [Norvasc] 5 mg PO DAILY 04/03/20 [History] Venlafaxine HCl [Venlafaxine ER] 75 mg PO DAILY 04/04/20 [History] cephALEXin [Cephalexin] 500 mg PO QID #20 capsule 04/05/20 [Rx] Referrals: Forest Martinez MD [Physician] - - Discharge Summary/Plan Comment DC Time >30 min.: No - Patient Data Vitals - Most Recent: Last Vital Signs Temp 97 F 04/05/20 07:12 Pulse 64 04/05/20 07:12 Resp 16 04/05/20 07:12 BP 158/54 H 04/05/20 07:12 Pulse Ox 91 L 04/05/20 07:12 Weight - Most Recent: 132 lb 7.965 oz I&O - Last 24 hours: Intake & Output 04/04/20 04/05/20 04/05/20 22:59 06:59 14:59 Intake Total 240 250 Balance 240 250 Lab Results - Last 24 hrs: Laboratory Results - last 24 hr 04/04/20 04/04/20 04/04/20 Range/Units 11:30 16:30 21:00 Sodium (140-148) mmol/L Potassium (3.6-5.2) mmol/L Chloride (100-108) mmol/L Carbon Dioxide (21-32) mmol/L Anion Gap (5.0-14.0) mmol/L BUN (7-18) mg/dL Creatinine (0.6-1.0) mg/dL Est Cr Clr Drug Dosing mL/min Estimated GFR (MDRD) (>60) Glucose (74-106) mg/dL POC Glucose 290 H 215 H 129 H (74-106) MG/DL Calcium (8.5-10.1) mg/dL 04/05/20 04/05/20 Range/Units 04:00 07:29 Sodium 141 (140-148) mmol/L Potassium 4.0 (3.6-5.2) mmol/L Chloride 105 (100-108) mmol/L Carbon Dioxide 22 (21-32) mmol/L Anion Gap 13.7 (5.0-14.0) mmol/L BUN 14 (7-18) mg/dL Creatinine 1.4 H (0.6-1.0) mg/dL Est Cr Clr Drug Dosing 27.31 mL/min Estimated GFR (MDRD) 36 L (>60) Glucose 195 H (74-106) mg/dL POC Glucose 201 H (74-106) MG/DL Calcium 8.5 (8.5-10.1) mg/dL Med Orders - Current: Current Medications Acetaminophen (Tylenol) 650 mg PO Q4H PRN PRN Reason: Pain (Mild 1-3)/fever Last Admin: 04/04/20 20:30 Dose: 650 mg Documented by: Amlodipine Besylate (Norvasc) 5 mg PO DAILY [facility] Last Admin: 04/04/20 09:51 Dose: 5 mg Documented by: Aspirin (Halfprin) 162 mg PO DAILY [facility] Last Admin: 04/04/20 09:51 Dose: 162 mg Documented by: Dextrose (Glutose 15) 15 gm PO ONETIME PRN PRN Reason: Hypoglycemia Dextrose/Water (Dextrose 50% In Water) 50 ml IV ONETIME PRN PRN Reason: Hypoglycemia Docusate Sodium (Colace) 100 mg PO DAILY [facility] Last Admin: 04/04/20 09:59 Dose: Not Given Documented by: Enoxaparin Sodium (Lovenox) 40 mg SUBCUT BEDTIME [facility] Last Admin: 04/04/20 20:29 Dose: 40 mg Documented by: Fluticasone Propionate (Flonase) 0 gm NASBOTH DAILY [facility] Last Admin: 04/04/20 09:59 Dose: Not Given Documented by: Ceftriaxone Sodium 1 gm/ (Sodium Chloride) 50 mls @ 100 mls/hr IV Q24H [facility] Last Admin: 04/04/20 20:26 Dose: 100 mls/hr Documented by: Insulin Human Lispro (Humalog) 0 unit SUBCUT QIDACANDBED [facility]; Protocol Last Admin: 04/05/20 07:56 Dose: 4 units Documented by: Levothyroxine Sodium (Levothyroxine) 75 mcg PO ACBREAKFAST [facility] Last Admin: 04/05/20 07:53 Dose: 75 mcg Documented by: Loratadine (Claritin) 10 mg PO DAILY [facility] Last Admin: 04/04/20 09:59 Dose: Not Given Documented by: Metformin HCl (Glucophage) 1,000 mg PO BIDMEALS [facility] Last Admin: 04/04/20 16:54 Dose: 1,000 mg Documented by: Metoprolol Tartrate (Lopressor) 25 mg PO BID [facility] Last Admin: 04/04/20 20:30 Dose: 25 mg Documented by: Ondansetron HCl (Zofran) 4 mg IV Q4H PRN PRN Reason: Nausea/Vomiting Pantoprazole Sodium (Protonix) 40 mg PO ACBREAKFAST [facility] Last Admin: 04/05/20 07:54 Dose: 40 mg Documented by: Polyethylene Glycol (Miralax) 17 gm PO DAILY [facility] Last Admin: 04/04/20 09:51 Dose: 17 gm Documented by: Senna/Docusate Sodium (Senna Plus) 1 tab PO BID PRN PRN Reason: Constipation Simvastatin (Zocor) 40 mg PO BEDTIME [facility] Last Admin: 04/04/20 20:29 Dose: 40 mg Documented by: Sodium Chloride (Saline Flush) 10 ml FLUSH ASDIRECTED PRN PRN Reason: Keep Vein Open Venlafaxine HCl (Effexor Xr) 75 mg PO DAILY [facility] Last Admin: 04/04/20 09:50 Dose: 75 mg Documented by: Discontinued Medications Sodium Chloride (Normal Saline) 1,000 mls @ 0 mls/hr IV ASDIRECTED [facility] Last Admin: 04/03/20 19:11 Dose: 999 mls/hr Documented by: Ceftriaxone Sodium 1 gm/ (Sodium Chloride) 50 mls @ 100 mls/hr IV ONETIME ONE Stop: 04/03/20 20:05 Last Admin: 04/03/20 20:10 Dose: 100 mls/hr Documented by: Sodium Chloride (Normal Saline) 1,000 mls @ 75 mls/hr IV ASDIRECTED [facility] Last Admin: 04/03/20 22:48 Dose: 75 mls/hr Documented by: Sodium Chloride (Saline Flush) 10 ml FLUSH ASDIRECTED PRN PRN Reason: Keep Vein Open Last Admin: 04/03/20 18:07 Dose: 10 ml Documented by: - Exam General: Reports: Alert, Cooperative, No Acute Distress. Denies: Oriented Lungs: Reports: Clear to Auscultation, Normal Respiratory Effort Cardiovascular: Reports: Regular Rate, Regular Rhythm, No Murmurs GI/Abdominal Exam: Soft, Non-Tender, No Organomegaly, No Distention Extremities: Non-Tender, No Pedal Edema
[2020-04-05] MEDS: Docusate Sodium 100 MG Cap PO SCH (09:52)
[2020-04-05] MEDS: metFORMIN 500 MG Tab PO SCH (09:52)
[2020-04-05] MEDS: Metoprolol Tartrate 25 MG Tab PO SCH (09:53)
[2020-04-05] MEDS: Polyethylene Glycol 3350 Powder 17 GM Packet PO SCH (09:53)
[2020-04-05] MEDS: amLODIPine 5 MG Tab PO SCH (09:53)
[2020-04-05] MEDS: Loratadine 10 MG Tab PO SCH (09:54)
[2020-04-05] MEDS: Venlafaxine 75 MG Cap.ER PO SCH (09:54)
[2020-04-05] MEDS: Aspirin 81 MG Tab.EC PO SCH (09:54)
[2020-04-05] MEDS: Fluticasone Propionate Nasal Spray 16 GM Bottle NASBOTH SCH (10:02)
[2020-04-05 11:14] VITALS: BP 159/63; PULSE 117
== END 2020-04-05 11:45 | disposition home health service (06) ==
LOC: JP.ED 17:31 → JP.MS 21:25
PROVIDERS: ADMIT Hospitalist; ATTEND Hospitalist
DX: N39.0 Urinary tract infection, site not specified (principal); E78.00 Pure hypercholesterolemia, unspecified; R53.1 Weakness; E11.22 Type 2 diabetes mellitus with diabetic chronic kidney disease; N18.30 Chronic kidney disease, stage 3 unspecified; I12.9 Hypertensive chronic kidney disease with stage 1 through stage 4 chronic kidney disease, or unspecified chronic kidney disease; F03.90 Unspecified dementia, unspecified severity, without behavioral disturbance, psychotic disturbance, mood disturbance, and anxiety; Z79.82 Long term (current) use of aspirin; Z79.899 Other long term (current) drug therapy; Z86.73 Personal history of transient ischemic attack (TIA), and cerebral infarction without residual deficits; Z98.890 Other specified postprocedural states; Z95.5 Presence of coronary angioplasty implant and graft
CPT/HCPCS: 36415; 71045; 74018; 80048; 80053; 81001; 82803; 82962; 84484; 85025; 85027; 86140; 93005; 93010; 96361; 96365; 96372; 97110; 97162; 97530; 99284; 99285; A9270; G0378; J0696; J1650; J1815; J7030; J7050